=== PATIENT | female | born 1965 | race Caucasian/White ===

== ENCOUNTER 2018-12-09 12:27 | Emergency (ER) | payer MEDICAID, SELFPAY ==
[2018-12-09] VITALS (24 sets, daily range): BP systolic 109–134; BP diastolic 53–90; PULSE 54–66; RESP 10–18; TEMP 37.2; O2SAT 98–100
--- NOTE | 2018-12-09 13:04 | W.ED.GENAD ---
Discharge Plan Disposition Patient Disposition: HOME Condition: Improving Discharge Details Chief Complaint: Dizzy/Sync Clinical Impression: Vertigo Primary Care Provider: Kendal Bartlett ED Provider: Javier Meza Home Meds and New Rx's Prescriptions: New meclizine 25 mg tablet 25 mg PO TID PRN (Reason: motion sickness) Qty: 10 RF: 0 ondansetron 4 mg tablet,disintegrating 4 mg PO TID PRN (Reason: nausea) Qty: 7 RF: 0 Continued sertraline 100 mg Tablet 150 mg PO DAILY RF: 0 Discharge Instructions Instructions: Vertigo (ED) Additional Instructions: Return immediately to the emergency department for any new or worsening symptoms including chest pain, guilty breathing, loss of consciousness, or neurological deficits. Otherwise stay well-hydrated and take medication as needed and follow-up with your primary care provider for reassessment if symptoms continue. Referrals: Kendal Bartlett [Primary Care Provider] - (As needed for reassessment) Discharge Data Discharge Date/Time-TO BE ENTERED AT DEPARTURE: 12/09/18 15:20 Medical Decision Making <Javier Meza NP - Last Filed: 12/09/18 18:54> Patient presenting to the emergency department for chief complaint of near syncope, nausea, and feeling off. She reports that she was driving going up a hill when she felt her ear started to form some pressure and then her symptoms began. Patient does state over the past week she has felt a fullness in her ears and does have a history of vertigo. Patient denies any specific panic attack or anxiety but does appear anxious she states she is worried about something being wrong and affecting her family. Patient denies any chest pain, palpitations, loss of consciousness, fever chills headache or focal neurological deficits. Patient was able to drive herself to the emergency department after symptoms began. Physical exam shows a reassuring hints exam, normal neurological exam and no nystagmus noted, nondiagnostic [place]-Hallpike, normal cardiac and respiratory examination. Given patient's description of previous history of vertigo along with ear symptoms recently I feel that patient's presentation is highly suspicious of that but still plan on doing labs for rule out of electrolyte abnormalities, finger blood glucose was checked and was nondiagnostic at 137, and patient to receive a liter of fluids, meclizine and Zofran. EKG was performed by nursing staff and reviewed with attending physician and see note below for interpretation. Review of labs show nondiagnostic CMP with slightly low magnesium, which patient given oral magnesium while in the emergency department, slight anemia on CBC but nothing emergent, and urinalysis nondiagnostic. Patient reassessed and stated significant improvement of symptoms and that she is now asymptomatic and is able to ambulate with no new or worsening of her symptoms. Patient's history and feeling off with the inner ear I do feel that vertiginous symptoms are high likelihood. I doubt cardiac event, and doubt any neurological event given resolution of symptoms. patient is now asymptomatic. After discussion of diagnosis and plan of care patient has no further needs, questions, or concerns and states clear understanding to return to the emergency department for any worsening symptoms. <Ruddy Garcia MD - Last Filed: 12/09/18 13:53> ECG Data Attestation: I personally reviewed and interpreted this ECG (s) as follows: Prior ECG tracings: not available for review Interpretation: sinus rhythm ,rate of 60, pr 158, no acute st t wave ischemic findings HPI <Javire Meza NP - Last Filed: 12/09/18 18:54> General Mode of arrival: ambulatory. Date/Time Provider Initiated Documentation: 12/09/18 12:38. Limitations to Documentation: no limitations. Information obtained by: patient and RN notes reviewed. History of Present Illness 53 year old F presents to the emergency department with the chief complaint of Equilibrium off, near syncope, described as similar to prior episodes, Quality is described as other (Denies pain or discomfort), Patient started experiencing this hour(s) (1) and it has been constant. No relieving factors improve symptom(s), Patient did receive the following treatments prior to arrival, none Related Data Home Medications Medication Instructions Recorded Confirmed meclizine 25 mg PO TID PRN #10 tab 12/09/18 ondansetron 4 mg PO TID PRN #7 tab 12/09/18 sertraline 150 mg PO DAILY 12/09/18 12/09/18 Previous Rx's Medication Instructions Recorded meclizine 25 mg PO TID PRN #10 tab 12/09/18 ondansetron 4 mg PO TID PRN #7 tab 12/09/18 Allergies Allergy/AdvReac Type Severity Reaction Status Date / Time No Known Allergies Allergy Unverified 12/09/18 14:24 General Stated Complaint: Dizzy/Sync LAURY: 3 Review of Systems <Javier Meza NP - Last Filed: 12/09/18 18:54> Constitutional Denies chills, Denies fever(s), Denies headache(s) and Denies malaise ENT Reports vertigo, Reports dizziness and Denies headache(s) Cardiovascular Denies chest pain, Denies chest pain with activity, Reports diaphoresis, Denies syncope, Denies irregular heart rhythm, Reports lightheadedness, Denies palpitations and Denies dyspnea Respiratory Denies cough, Denies hemoptysis and Denies dyspnea Gastrointestinal Denies abdominal pain, Reports nausea and Denies vomiting Neurologic Reports as per HPI, Reports vertigo, Reports dizziness, Denies syncope, Denies headache(s), Denies lack of coordination, Denies focal weakness and Denies sensory deficit Psychiatric Denies anxiety Endocrine Denies palpitations PFSH <Javier Meza NP - Last Filed: 12/09/18 18:54> Social History Smoking/Tobacco Use Status: Never Drug use: Never Substance use type: does not use Do you feel safe at home: Yes Do you feel safe in your relationship?: Yes Exam <Javier Meza NP - Last Filed: 12/09/18 18:54> Const General: cooperative, healthy appearing, comfortable, no acute distress, not diaphoretic and not ill appearing Nutritional Appearance: average body habitus Orientation: alert, awake and oriented x3 Limitations: mental status not altered Eyes General: appearance normal, both eyes and all related structures Visual Wheeler: normal visual wheeler by confrontation Alignment and Position: alignment normal Periorbital: periorbital findings normal Conjunctivae: conjunctivae normal Sclera: sclerae normal Pupils: PERRL EOM: EOM intact bilaterally and No nystagmus Neck Neck: normal visual inspection, full ROM, no meningeal signs, trachea midline and supple Chest Chest: normal inspection of the chest Resp Effort & Inspection: normal respiratory effort and able to speak in complete sentences Auscultation: clear to auscultation bilaterally Cardio Jugular venous pressure: no JVD Palpation: normal PMI Rate: regular rate Rhythm: regular rhythm Heart Sounds: S1 normal, S2 normal, no click, no gallops, no murmurs and no rubs Bruits: no abdominal aortic bruits and no carotid bruits Pulses: radial pulses present bilaterally 2+ GI Inspection: normal to inspection Palpation: soft, no aortic enlargement, no pulsatile masses and nontender Auscultation: normal bowel sounds Skin General skin exam: no rashes or lesions noted Neuro General: alert, awake, oriented x3, gait normal, tone normal, moves all extremities, normal light touch, pain and propioception, no meningeal signs, no focal motor deficits, CN's II-XI intact bilaterally, not confused, not obtunded and other (neg HINTS) Cranial Nerves: no nystagmus Coordination: [id number] test normal and Romberg test normal Course <Javier Meza, RESEARCH CONSULTANT - Last Filed: 12/09/18 18:54> Vital Signs Temperature 37.2 C 12/09/18 12:29 Pulse 66 12/09/18 12:29 Respiratory Rate 12 12/09/18 12:29 Blood Pressure 134/87 12/09/18 12:29 Pulse Oximetry 99 12/09/18 12:29 Temperature 37.2 C 12/09/18 12:29 Temperature Source Skin 12/09/18 12:29 Pulse 66 12/09/18 12:29 Respiratory Rate 12 12/09/18 12:43 Respiratory Effort 12/09/18 12:43 Respiratory Depth Normal 12/09/18 12:43 Respiratory Pattern Normal 12/09/18 12:43 Blood Pressure 134/87 12/09/18 12:29 Blood Pressure Position Supine 12/09/18 12:29 Pulse Oximetry 99 12/09/18 12:29 Oxygen Delivery Method Room Air 12/09/18 12:29 Oxygen Flow Rate 0 12/09/18 12:29 Pain Level 0 12/09/18 12:29
--- NOTE | 2018-12-09 13:07 | ED.GENADUL_ITS ---
Discharge Plan Disposition Patient Disposition: HOME Condition: Improving Discharge Details Chief Complaint: Dizzy/Sync Clinical Impression: Vertigo Primary Care Provider: Kendal Bartlett ED Provider: Javier Meza Home Meds and New Rx's Prescriptions: New meclizine 25 mg tablet 25 mg PO TID PRN (Reason: motion sickness) Qty: 10 RF: 0 ondansetron 4 mg tablet,disintegrating 4 mg PO TID PRN (Reason: nausea) Qty: 7 RF: 0 Continued sertraline 100 mg Tablet 150 mg PO DAILY RF: 0 Discharge Instructions Instructions: Vertigo (ED) Additional Instructions: Return immediately to the emergency department for any new or worsening symptoms including chest pain, guilty breathing, loss of consciousness, or neurological deficits. Otherwise stay well-hydrated and take medication as needed and follow-up with your primary care provider for reassessment if symptoms continue. Referrals: Kendal Bartlett [Primary Care Provider] - (As needed for reassessment) Discharge Data Discharge Date/Time-TO BE ENTERED AT DEPARTURE: 12/09/18 15:20 Medical Decision Making <Javier Meza NP - Last Filed: 12/09/18 18:54> Patient presenting to the emergency department for chief complaint of near syncope, nausea, and feeling off. She reports that she was driving going up a hill when she felt her ear started to form some pressure and then her symptoms began. Patient does state over the past week she has felt a fullness in her ears and does have a history of vertigo. Patient denies any specific panic attack or anxiety but does appear anxious she states she is worried about something being wrong and affecting her family. Patient denies any chest pain, palpitations, loss of consciousness, fever chills headache or focal neurological deficits. Patient was able to drive herself to the emergency department after symptoms began. Physical exam shows a reassuring hints exam, normal neurological exam and no nystagmus noted, nondiagnostic [place]-Hallpike, normal cardiac and respiratory examination. Given patient's description of previous history of vertigo along with ear symptoms recently I feel that patient's presentation is highly suspicious of that but still plan on doing labs for rule out of electrolyte abnormalities, finger blood glucose was checked and was nondiagnostic at 137, and patient to receive a liter of fluids, meclizine and Zofran. EKG was performed by nursing staff and reviewed with attending physician and see note below for interpretation. Review of labs show nondiagnostic CMP with slightly low magnesium, which patient given oral magnesium while in the emergency department, slight anemia on CBC but nothing emergent, and urinalysis nondiagnostic. Patient reassessed and stated significant improvement of symptoms and that she is now asymptomatic and is able to ambulate with no new or worsening of her symptoms. Patient's history and feeling off with the inner ear I do feel that vertiginous symptoms are high likelihood. I doubt cardiac event, and doubt any neurological event given resolution of symptoms. patient is now asymptomatic. After discussion of diagnosis and plan of care patient has no further needs, questions, or concerns and states clear understanding to return to the emergency department for any worsening symptoms. <Ruddy Garcia MD - Last Filed: 12/09/18 13:53> ECG Data Attestation: I personally reviewed and interpreted this ECG (s) as follows: Prior ECG tracings: not available for review Interpretation: sinus rhythm ,rate of 60, pr 158, no acute st t wave ischemic findings HPI <Javier Meza NP - Last Filed: 12/09/18 18:54> General Mode of arrival: ambulatory . Date/Time Provider Initiated Documentation: 12/09/18 12:38 . Limitations to Documentation: no limitations . Information obtained by: patient and RN notes reviewed . History of Present Illness 53 year old F presents to the emergency department with the chief complaint of Equilibrium off, near syncope, described as similar to prior episodes, Quality is described as other (Denies pain or discomfort), Patient started experiencing this hour(s) (1) and it has been constant. No relieving factors improve symptom(s), Patient did receive the following treatments prior to arrival, none Related Data Home Medications Medication Instructions Recorded Confirmed meclizine 25 mg PO TID PRN #10 tab 12/09/18 ondansetron 4 mg PO TID PRN #7 tab 12/09/18 sertraline 150 mg PO DAILY 12/09/18 12/09/18 Previous Rx's Medication Instructions Recorded meclizine 25 mg PO TID PRN #10 tab 12/09/18 ondansetron 4 mg PO TID PRN #7 tab 12/09/18 Allergies Allergy/AdvReac Type Severity Reaction Status Date / Time No Known Allergies Allergy Unverified 12/09/18 14:24 General Stated Complaint: Dizzy/Sync LAURY: 3 Review of Systems <Javier Meza NP - Last Filed: 12/09/18 18:54> Constitutional Denies chills, Denies fever(s), Denies headache(s) and Denies malaise ENT Reports vertigo, Reports dizziness and Denies headache(s) Cardiovascular Denies chest pain, Denies chest pain with activity, Reports diaphoresis, Denies syncope, Denies irregular heart rhythm, Reports lightheadedness, Denies palpitations and Denies dyspnea Respiratory Denies cough, Denies hemoptysis and Denies dyspnea Gastrointestinal Denies abdominal pain, Reports nausea and Denies vomiting Neurologic Reports as per HPI, Reports vertigo, Reports dizziness, Denies syncope, Denies headache(s), Denies lack of coordination, Denies focal weakness and Denies sensory deficit Psychiatric Denies anxiety Endocrine Denies palpitations PFSH <Javier Meza NP - Last Filed: 12/09/18 18:54> Social History Smoking/Tobacco Use Status: Never Drug use: Never Substance use type: does not use Do you feel safe at home: Yes Do you feel safe in your relationship?: Yes Exam <Javier Meza NP - Last Filed: 12/09/18 18:54> Const General: cooperative, healthy appearing, comfortable, no acute distress, not diaphoretic and not ill appearing Nutritional Appearance: average body habitus Orientation: alert, awake and oriented x3 Limitations: mental status not altered Eyes General: appearance normal, both eyes and all related structures Visual Wheeler: normal visual wheeler by confrontation Alignment and Position: alignment normal Periorbital: periorbital findings normal Conjunctivae: conjunctivae normal Sclera: sclerae normal Pupils: PERRL EOM: EOM intact bilaterally and No nystagmus Neck Neck: normal visual inspection, full ROM, no meningeal signs, trachea midline and supple Chest Chest: normal inspection of the chest Resp Effort & Inspection: normal respiratory effort and able to speak in complete sentences Auscultation: clear to auscultation bilaterally Cardio Jugular venous pressure: no JVD Palpation: normal PMI Rate: regular rate Rhythm: regular rhythm Heart Sounds: S1 normal, S2 normal, no click, no gallops, no murmurs and no rubs Bruits: no abdominal aortic bruits and no carotid bruits Pulses: radial pulses present bilaterally 2+ GI Inspection: normal to inspection Palpation: soft, no aortic enlargement, no pulsatile masses and nontender Auscultation: normal bowel sounds Skin General skin exam: no rashes or lesions noted Neuro General: alert, awake, oriented x3, gait normal, tone normal, moves all extremities, normal light touch, pain and propioception, no meningeal signs, no focal motor deficits, CN's II-XI intact bilaterally, not confused, not obtunded and other (neg HINTS) Cranial Nerves: no nystagmus Coordination: [id number] test normal and Romberg test normal Course <Javier Meza, RADIO MAINTAINER - Last Filed: 12/09/18 18:54> Vital Signs Temperature 37.2 C 12/09/18 12:29 Pulse 66 12/09/18 12:29 Respiratory Rate 12 12/09/18 12:29 Blood Pressure 134/87 12/09/18 12:29 Pulse Oximetry 99 12/09/18 12:29 Temperature 37.2 C 12/09/18 12:29 Temperature Source Skin 12/09/18 12:29 Pulse 66 12/09/18 12:29 Respiratory Rate 12 12/09/18 12:43 Respiratory Effort 12/09/18 12:43 Respiratory Depth Normal 12/09/18 12:43 Respiratory Pattern Normal 12/09/18 12:43 Blood Pressure 134/87 12/09/18 12:29 Blood Pressure Position Supine 12/09/18 12:29 Pulse Oximetry 99 12/09/18 12:29 Oxygen Delivery Method Room Air 12/09/18 12:29 Oxygen Flow Rate 0 12/09/18 12:29 Pain Level 0 12/09/18 12:29
[2018-12-09] MEDS: Normal Saline Flush 10 ML SYR IVP (13:10)
[2018-12-09] MEDS: Normal Saline 1,000 ML 1000 ML IV (13:16)
[2018-12-09] MEDS: Meclizine 25 MG TAB PO (13:17)
[2018-12-09] MEDS: Ondansetron O.D.T. 4 MG TABEF PO (13:18)
[2018-12-09 13:29] LABS: Abs Immature Grans 0.02 k/cumm (0.0-0.09); Absolute Basophil Count 0.01 k/cumm (0.0-0.2); Absolute Eosinophil Count 0.21 k/cumm (0.0-0.7); Absolute Monocyte Count 0.73 k/cumm (0.11-0.7); Absolute Neutrophil Count 4.07 k/cumm (1.2-6.7); Basophils % 0.1; Eosinophils % 3.1; HCT 35.2 % (36.0-46.0); HGB 11.3 g/dL (12.0-15.5); Immature Grans % 0.3; Lymphocytes % 25.2; Mean Corp. HGB Concentration 32.1 g/dL (32.0-36.0); Mean Corpuscular Hemoglobin 19.4 pg (27.0-33.0); Mean Corpuscular Volume 60.6 fL (80-95); Monocytes % 10.8; Neutrophils % 60.5; RBC 5.81 m/cumm (4.00-5.20); RBC Distribution Width 16.3 % (11.7-14.6); White Blood Cell Count 6.74 k/cumm (4.4-10.8)
[2018-12-09 13:42] LABS: ALT 29 U/L (12-78); AST 27 U/L (15-37); Albumin 3.8 g/dL (3.4-5.0); Alkaline Phosphatase 77 U/L (46-116); Anion Gap 10.3 mmol/L (3-11); BUN 19 mg/dL (7-18); Bilirubin, Total 0.4 mg/dL (0.2-1.0); CO2 23.7 mmol/L (21.0-32.0); Chloride 104 mmol/L (98-107); Glucose 116 mg/dL (70-100); Magnesium 1.7 mg/dL (1.8-2.4); Potassium 3.8 mmol/L (3.5-5.1); Sodium 138 mmol/L (136-145)
[2018-12-09 13:48] LABS: Troponin I < 0.02 ng/mL (0.00-0.06)
[2018-12-09] MEDS: Magnesium Oxide 400 MG TAB PO (13:53)
[2018-12-09 13:56] LABS: Diff Comment RBC Morph Reviewed; Platelet Count 176 x1000/uL (130-400)
[2018-12-09 13:58] LABS: Anisocytosis 1+
[2018-12-09 13:59] LABS: Hypochromasia 1+; Microcytosis 2+
[2018-12-09 14:01] LABS: Poikilocytes 2+
[2018-12-09 14:26] LABS: Bilirubin Negative (Negative); Blood Trace-intact (Negative); Clarity Clear; Glucose Negative (Negative); Ketones Trace mg/dL (Negative); Leukocyte Esterase Negative (Negative); Nitrite Negative (Negative); Urobilinogen 0.2 EU/dL (Up TO 0.2); pH 6.5 (5-8)
[2018-12-09 14:49] LABS: Bacteria Rare HPF (Negative); C & S Indicated? No; Casts Negative LPF (Negative); Crystals Negative HPF (Negative); Epithelial Cells Rare HPF (Negative); Mucus Negative (Negative); WBC 0-2 HPF (0-5)
== END 2018-12-09 15:20 | disposition home or self-care (01) ==
PROVIDERS: Emergency Provider Nurse Practitioner Family; PCP Nurse Practitioner Family
DX: R42 Dizziness and giddiness (principal)
CPT/HCPCS: 36415; 36416; 80053; 82962; 93005; 96360; 99284; 81003; 81015; 83735; 84484; 85025; 93010

== ENCOUNTER 2019-07-27 09:43 | Outpatient (REF) | payer MEDICAID, SELFPAY ==
--- NOTE | 2019-07-27 09:00 | PAPFT_PTH ---
PATIENT: Silke Garces LOC: [facility] U#:[id number] AGE/SX: 54/F ROOM: RE07/27/[address]: Kendal Bartlett : 1965 BED: DIS: 07/27/2019 SPEC #: [id number] RECD: 07/27/19 13:13 STATUS: [place] REQ #: [id number] [place]: 07/27/19 09:[address]: Kendal Bartlett DEPT: [facility] Cytology RECD BY: Katia Castillo Tissues: 1 - CX/ENDOCX FOR PAP SMEARS Procedures: PAP THIN PREP/UVM Screening Comments: [id number]
== END 2019-07-27 10:03 ==
LOC: NCHCN 09:43
PROVIDERS: PCP Nurse Practitioner Family; Visit Provider Nurse Practitioner Family
DX: Z11.51 Encounter for screening for human papillomavirus (HPV) (principal); Z12.4 Encounter for screening for malignant neoplasm of cervix; Z00.00 Encounter for general adult medical examination without abnormal findings
CPT/HCPCS: 88142; 87624

== ENCOUNTER 2019-11-02 07:22 | Day surgery (SDC) | payer MEDICAID, SELFPAY ==
[2019-11-02 07:42] VITALS: BP 142/78; PULSE 74; RESP 20; TEMP 36.5; O2SAT 99
[2019-11-02] MEDS: Lactated Ringers 1,000 ML 80 ML IV (08:06)
--- NOTE | 2019-11-02 09:47 | W.PM.DSUDISC ---
Discharge Plan Disposition Patient Disposition: HOME Condition: Good Discharge Details Reason For Visit: CRC screen Attending Provider: Vivian Laureano Primary Care Provider: Kendal Bartlett Home Meds and New Rx's Prescriptions: Continued zolpidem [Ambien] 5 mg tablet 5 mg PO QHS PRNRF: 0 sertraline 100 mg tablet 100 mg PO DAILY RF: 0 Discontinued polyethylene glycol 3350 17 gram/dose powder 238 g PO ONCE Qty: 238 RF: 0 bisacodyl [Dulcolax (bisacodyl)] 5 mg tablet,delayed release (DR/EC) 5 mg PO ONCE Qty: 4 RF: 0 Discharge Instructions Additional Instructions: Findings:normal Follow up: repeat in 10 yrs time Please call if you develop: fevers >101.5 Nausea or Vomiting Abdominal pain that is not transient DAY SURGERY UNIT POST COLONOSCOPY INSTRUCTIONS 1. Because there will be medication in your system for the next 24 hours, you may feel a little sleepy. Your coordination will be affected. Therefore: a. Do not drive or operate dangerous equipment for 24 hours. b. Do not drink alcohol beverages for 24 hours (not even beer). c. Plan to go home and rest for the day. 2. Generally there are no restrictions on your activity after a day or so has gone by, but you may feel a bit fatigued for a few days. 3 After you arrive home you may have a light meal and return to a normal diet as you can tolerate it without feeling sick to your stomach. 4. After surgery, you may feel pain or discomfort. This should be only transient, but if it persists please contact your doctor. 5. If there are any questions regarding the findings of your procedure, please feel free to contact your doctor. 6. If you are unable to contact your doctor with a problem, contact the hospital at [phone]. 7. Continue all your regular medications unless directed otherwise. I understand the above instructions and have no questions. Signature of Patient or Responsible Adult Escort Date/Time Name of Responsible Adult Escort Signature of Nurse Date/Time Activity:: no lifting over 20#'s/strenuous acitivty x 24 hrs Diet:: small lt meals x 24 hrs Discharge Orders Discharge Orders: Discharge Order (Routine); Ordered 11/02/19 Ordered By: Vivian Laureano DS: Diagnosis Discharge Diagnosis (1) Colon cancer screening: Status: Acute
--- NOTE | 2019-11-02 09:54 | W.COLOREPORT ---
Date of service: 11/02/19 Time of Service: 09:54 Colonoscopy Report Date of procedure: 11/02/19 Pre-op diagnosis general: screen Post-op diagnosis procedure note: other Anesthesia proc note operative: GETA Disposition: same day Prep: Miralax/Dulcolax Procedure Description: After informed consent was obtained the patient was taken to the procedure room and placed in a left decubitous position. Monitors were applied and a time out was done. The patients name, date of , procedure, allergies to medications and metal in their body was reviewed. The patient was then sedated. Once sedated and comfortable a rectal exam was done. External exam was normal. Internal exam revealed a normal sphincter tone and no palpable masses. The scope was then introduced and retrofelexed. No internal hemorrhoids were identified. The scope was then advanced to the cecum w/out difficulty. The TI and appendiceal orifice were identified. The prep was good. The scope was then slowly retracted over 10 mins minutes back into the rectum. No polyps/AVM's/diverticular Dx. The scope was removed and the patient was woken up and taken back to Same day surgery in stable condition. The patient tolerated the procedure well and there were no immediate complications. Follow up: The patient should follow up in 10 years unless they develop changes in bowel habits or other new gastrointestinal complaints.
[2019-11-02 10:15] VITALS: BP 120/67; PULSE 62; RESP 16; TEMP 36.4; O2SAT 100
== END 2019-11-02 11:20 | disposition home or self-care (01) ==
PROVIDERS: PCP Nurse Practitioner Family; Visit Provider Surgery
PROC: 0DJD8ZZ Inspection of Lower Intestinal Tract, Via Natural or Artificial Opening Endoscopic (ICD-10-PCS; CPT 45378; principal; 2019-11-02 08:15)
DX: Z12.11 Encounter for screening for malignant neoplasm of colon (principal)
CPT/HCPCS: 45378; J2001

== ENCOUNTER 2019-12-18 11:07 | Outpatient (RCR) | payer MEDICAID, SELFPAY | END 2019-12-21 23:59 | disposition home or self-care (01) | LOC: INF 11:07 | PROVIDERS: PCP Nurse Practitioner Family; Visit Provider Internal Medicine Hematology & Oncology | DX: C53.8 Malignant neoplasm of overlapping sites of cervix uteri (principal) | CPT/HCPCS: 36415; 82565 ==

== ENCOUNTER 2020-01-16 01:19 | Outpatient (RCR) | payer MEDICAID, SELFPAY ==
[2020-01-02 11:19] LABS: ALT 29 U/L (14-59); AST 18 U/L (15-37); Albumin 4.1 g/dL (3.4-5.0); Alkaline Phosphatase 77 U/L (46-116); BUN 17 mg/dL (7-18); Bilirubin, Total 0.6 mg/dL (0.2-1.0); CREATININE 0.93 mg/dL (0.55-1.02); Calcium 9.9 mg/dL (8.5-10.1); Chloride 100 mmol/L (98-107); Glucose 114 mg/dL (74-106); Potassium 3.8 mmol/L (3.5-5.1); Sodium 136 mmol/L (136-145); Total Protein 7.5 g/dL (6.4-8.2)
[2020-01-02 11:27] LABS: Abs Immature Grans 0.07 k/cumm (0.0-0.09); Absolute Basophil Count 0.01 k/cumm (0.0-0.2); Absolute Eosinophil Count 0.13 k/cumm (0.0-0.7); Absolute Lymphocyte Count 1.11 k/cumm (1.2-3.4); Absolute Monocyte Count 0.74 k/cumm (0.11-0.7); Absolute Neutrophil Count 5.97 k/cumm (1.2-6.7); Basophils % 0.1; Eosinophils % 1.6; HCT 37.9 % (36.0-46.0); HGB 12.5 g/dL (12.0-15.5); Immature Grans % 0.9 %; Lymphocytes % 13.8; Mean Corpuscular Volume 60.6 fL (80-95); Mean Platelet Volume 11.2 fL (8.0-11.0); Monocytes % 9.2; Neutrophils % 74.4; RBC 6.25 m/cumm (4.00-5.20); RBC Distribution Width 16.7 % (11.7-14.6); White Blood Cell Count 8.03 k/cumm (4.4-10.8)
[2020-01-02 11:39] LABS: Diff Comment RBC Morph Reviewed; Platelet Count 218 x1000/uL (130-400)
[2020-01-02 11:40] LABS: Anisocytosis 1+; Hypochromasia 3+; Microcytosis 3+
[2020-01-02 11:41] LABS: Poikilocytes 2+
[2020-01-02 12:36] LABS: Magnesium 1.9 mg/dL (1.8-2.4)
[2020-01-09 13:50] LABS: Abs Immature Grans 0.02 k/cumm (0.0-0.09); Absolute Basophil Count 0.01 k/cumm (0.0-0.2); Absolute Eosinophil Count 0.27 k/cumm (0.0-0.7); Absolute Lymphocyte Count 0.51 k/cumm (1.2-3.4); Absolute Monocyte Count 0.44 k/cumm (0.11-0.7); Absolute Neutrophil Count 3.44 k/cumm (1.2-6.7); Basophils % 0.2; Eosinophils % 5.8; HCT 33.3 % (36.0-46.0); HGB 10.8 g/dL (12.0-15.5); Immature Grans % 0.4 %; Lymphocytes % 10.9; Mean Corp. HGB Concentration 32.4 g/dL (32.0-36.0); Mean Corpuscular Hemoglobin 19.6 pg (27.0-33.0); Mean Corpuscular Volume 60.4 fL (80-95); Mean Platelet Volume 10.9 fL (8.0-11.0); Monocytes % 9.4; Neutrophils % 73.3; RBC 5.51 m/cumm (4.00-5.20); RBC Distribution Width 15.6 % (11.7-14.6); White Blood Cell Count 4.69 k/cumm (4.4-10.8)
[2020-01-09 13:58] LABS: ALT 25 U/L (14-59); AST 14 U/L (15-37); Albumin 3.8 g/dL (3.4-5.0); Alkaline Phosphatase 68 U/L (46-116); Anion Gap 9.6 mmol/L (3-11); BUN 16 mg/dL (7-18); Bilirubin, Total 0.3 mg/dL (0.2-1.0); CO2 25.4 mmol/L (21.0-32.0); CREATININE 0.83 mg/dL (0.55-1.02); Calcium 9.3 mg/dL (8.5-10.1); Chloride 101 mmol/L (98-107); Glucose 113 mg/dL (74-106); Potassium 3.3 mmol/L (3.5-5.1); Sodium 136 mmol/L (136-145); Total Protein 6.9 g/dL (6.4-8.2)
[2020-01-09 14:29] LABS: Anisocytosis 2+; Diff Comment RBC Morph Reviewed; Microcytosis 1+; Platelet Count 132 x1000/uL (130-400)
[2020-01-09 14:30] LABS: Poikilocytes 1+
[2020-01-10 11:39] LABS: Magnesium 1.8 mg/dL (1.8-2.4)
[2020-01-16 09:35] LABS: Abs Immature Grans 0.05 k/cumm (0.0-0.09); Absolute Basophil Count 0.02 k/cumm (0.0-0.2); Absolute Eosinophil Count 0.56 k/cumm (0.0-0.7); Absolute Lymphocyte Count 0.51 k/cumm (1.2-3.4); Absolute Monocyte Count 0.39 k/cumm (0.11-0.7); Basophils % 0.5; Eosinophils % 14.6; HCT 31.1 % (36.0-46.0); Immature Grans % 1.3 %; Lymphocytes % 13.3; Mean Corp. HGB Concentration 32.2 g/dL (32.0-36.0); Mean Corpuscular Hemoglobin 19.7 pg (27.0-33.0); Mean Corpuscular Volume 61.3 fL (80-95); Monocytes % 10.2; Neutrophils % 60.1; RBC 5.07 m/cumm (4.00-5.20); White Blood Cell Count 3.83 k/cumm (4.4-10.8)
[2020-01-16 09:36] LABS: Anisocytosis 1+; Diff Comment PLT Morph Reviewed; Hypochromasia 2+; Platelet Count 118 x1000/uL (130-400)
[2020-01-16 09:37] LABS: Microcytosis 3+; Poikilocytes 2+
[2020-01-16 09:41] LABS: ALT 32 U/L (14-59); AST 16 U/L (15-37); Albumin 3.6 g/dL (3.4-5.0); Alkaline Phosphatase 57 U/L (46-116); Anion Gap 5.3 mmol/L (3-11); BUN 12 mg/dL (7-18); Bilirubin, Total 0.3 mg/dL (0.2-1.0); CO2 28.7 mmol/L (21.0-32.0); CREATININE 0.78 mg/dL (0.55-1.02); Chloride 101 mmol/L (98-107); Glucose 100 mg/dL (74-106); Magnesium 1.6 mg/dL (1.8-2.4); Potassium 3.4 mmol/L (3.5-5.1); Sodium 135 mmol/L (136-145); Total Protein 6.6 g/dL (6.4-8.2)
== END 2020-01-16 14:57 ==
LOC: INF 01:19
PROVIDERS: PCP Nurse Practitioner Family; Visit Provider Internal Medicine
DX: C53.1 Malignant neoplasm of exocervix (principal)
CPT/HCPCS: 36415; 80053; 83735; 85025

== ENCOUNTER 2020-01-16 14:51 | Outpatient (RCR) | payer MEDICAID, SELFPAY ==
[2019-12-26 15:18] LABS: Abs Immature Grans 0.02 k/cumm (0.0-0.09); Absolute Basophil Count 0.02 k/cumm (0.0-0.2); Absolute Eosinophil Count 0.43 k/cumm (0.0-0.7); Absolute Monocyte Count 0.53 k/cumm (0.11-0.7); Absolute Neutrophil Count 4.98 k/cumm (1.2-6.7); Basophils % 0.2; Eosinophils % 5.1; HCT 35.8 % (36.0-46.0); HGB 11.4 g/dL (12.0-15.5); Immature Grans % 0.2 %; Lymphocytes % 29.5; Mean Corp. HGB Concentration 31.8 g/dL (32.0-36.0); Mean Corpuscular Hemoglobin 19.5 pg (27.0-33.0); Mean Corpuscular Volume 61.2 fL (80-95); Mean Platelet Volume 10.9 fL (8.0-11.0); Monocytes % 6.3; Neutrophils % 58.7; Platelet Count 211 x1000/uL (130-400); RBC 5.85 m/cumm (4.00-5.20); RBC Distribution Width 16.7 % (11.7-14.6); White Blood Cell Count 8.48 k/cumm (4.4-10.8)
[2019-12-26 15:26] LABS: ALT 28 U/L (14-59); AST 21 U/L (15-37); Albumin 3.9 g/dL (3.4-5.0); Alkaline Phosphatase 86 U/L (46-116); Anion Gap 9.7 mmol/L (3-11); BUN 17 mg/dL (7-18); Bilirubin, Total 0.5 mg/dL (0.2-1.0); CO2 27.3 mmol/L (21.0-32.0); CREATININE 0.95 mg/dL (0.55-1.02); Calcium 9.3 mg/dL (8.5-10.1); Chloride 103 mmol/L (98-107); Glucose 93 mg/dL (74-106); Potassium 3.4 mmol/L (3.5-5.1); Sodium 140 mmol/L (136-145); Total Protein 7.2 g/dL (6.4-8.2)
[2019-12-26 15:47] LABS: Diff Comment Diff Reviewed; Microcytosis 3+
[2019-12-26 15:48] LABS: Anisocytosis 1+; Poikilocytes 1+
[2019-12-26 17:44] LABS: Magnesium 1.9 mg/dL (1.8-2.4)
== END 2020-01-21 23:59 | disposition home or self-care (01) ==
LOC: INF 14:51
PROVIDERS: Internal Medicine; PCP Nurse Practitioner Family; Visit Provider Internal Medicine Hematology & Oncology
DX: C53.1 Malignant neoplasm of exocervix (principal)
CPT/HCPCS: 36415; 80053; 83735; 85025

== ENCOUNTER 2020-02-06 00:36 | Outpatient (RCR) | payer MEDICAID, SELFPAY ==
[2020-01-23 09:49] LABS: Abs Immature Grans 0.02 k/cumm (0.0-0.09); Absolute Basophil Count 0.01 k/cumm (0.0-0.2); Absolute Eosinophil Count 0.09 k/cumm (0.0-0.7); Absolute Lymphocyte Count 0.57 k/cumm (1.2-3.4); Absolute Monocyte Count 0.45 k/cumm (0.11-0.7); Absolute Neutrophil Count 2.98 k/cumm (1.2-6.7); Basophils % 0.2; Eosinophils % 2.2; HCT 31.6 % (36.0-46.0); HGB 10.2 g/dL (12.0-15.5); Immature Grans % 0.5 %; Lymphocytes % 13.8; Mean Corp. HGB Concentration 32.3 g/dL (32.0-36.0); Mean Corpuscular Hemoglobin 19.8 pg (27.0-33.0); Mean Corpuscular Volume 61.5 fL (80-95); Mean Platelet Volume 10.3 fL (8.0-11.0); Monocytes % 10.9; Neutrophils % 72.4; RBC 5.14 m/cumm (4.00-5.20); RBC Distribution Width 16.8 % (11.7-14.6); White Blood Cell Count 4.12 k/cumm (4.4-10.8)
[2020-01-23 09:51] LABS: ALT 30 U/L (14-59); AST 14 U/L (15-37); Albumin 3.7 g/dL (3.4-5.0); Alkaline Phosphatase 59 U/L (46-116); Anion Gap 3.5 mmol/L (3-11); BUN 15 mg/dL (7-18); Bilirubin, Total 0.4 mg/dL (0.2-1.0); CO2 28.5 mmol/L (21.0-32.0); Calcium 8.8 mg/dL (8.5-10.1); Chloride 99 mmol/L (98-107); Glucose 101 mg/dL (74-106); Magnesium 1.4 mg/dL (1.8-2.4); Potassium 3.3 mmol/L (3.5-5.1); Sodium 131 mmol/L (136-145); Total Protein 6.7 g/dL (6.4-8.2)
[2020-01-23 10:10] LABS: Anisocytosis 2+; Diff Comment Diff Reviewed; Platelet Count 113 x1000/uL (130-400)
[2020-01-23 10:11] LABS: Hypochromasia 2+; Microcytosis 3+; Ovalocytes 2+
[2020-01-23 10:13] LABS: Poikilocytes 2+
[2020-01-30 09:38] LABS: Abs Immature Grans 0.01 k/cumm (0.0-0.09); Absolute Eosinophil Count 0.07 k/cumm (0.0-0.7); Absolute Lymphocyte Count 0.44 k/cumm (1.2-3.4); Absolute Monocyte Count 0.29 k/cumm (0.11-0.7); Absolute Neutrophil Count 1.97 k/cumm (1.2-6.7); Eosinophils % 2.5; HCT 31.5 % (36.0-46.0); HGB 10.2 g/dL (12.0-15.5); Immature Grans % 0.4 %; Lymphocytes % 15.8; Mean Corp. HGB Concentration 32.4 g/dL (32.0-36.0); Mean Corpuscular Hemoglobin 20.1 pg (27.0-33.0); Mean Platelet Volume 9.1 fL (8.0-11.0); Monocytes % 10.4; Neutrophils % 70.9; RBC 5.08 m/cumm (4.00-5.20); RBC Distribution Width 17.9 % (11.7-14.6); White Blood Cell Count 2.78 k/cumm (4.4-10.8)
[2020-01-30 09:50] LABS: ALT 29 U/L (14-59); AST 16 U/L (15-37); Albumin 3.7 g/dL (3.4-5.0); Alkaline Phosphatase 59 U/L (46-116); BUN 15 mg/dL (7-18); Bilirubin, Total 0.4 mg/dL (0.2-1.0); CREATININE 0.83 mg/dL (0.55-1.02); Calcium 8.8 mg/dL (8.5-10.1); Chloride 100 mmol/L (98-107); Glucose 102 mg/dL (74-106); Potassium 3.4 mmol/L (3.5-5.1); Sodium 137 mmol/L (136-145); Total Protein 6.6 g/dL (6.4-8.2)
[2020-01-30 10:14] LABS: Anisocytosis 2+; Basophilic Stippling Present; Diff Comment RBC Morph Reviewed; Platelet Count 120 x1000/uL (130-400)
[2020-01-30 10:15] LABS: Hypochromasia 2+; Microcytosis 3+
[2020-01-30 10:16] LABS: Poikilocytes 2+
[2020-01-30 17:21] LABS: Magnesium 1.8 mg/dL (1.8-2.4)
[2020-02-06 12:26] LABS: Abs Immature Grans 0.01 k/cumm (0.0-0.09); Absolute Eosinophil Count 0.05 k/cumm (0.0-0.7); Absolute Lymphocyte Count 0.41 k/cumm (1.2-3.4); Absolute Monocyte Count 0.27 k/cumm (0.11-0.7); Eosinophils % 2.2; HCT 27.8 % (36.0-46.0); Immature Grans % 0.4 %; Lymphocytes % 18.3; Mean Corp. HGB Concentration 32.4 g/dL (32.0-36.0); Mean Corpuscular Hemoglobin 20.4 pg (27.0-33.0); Mean Corpuscular Volume 62.9 fL (80-95); Monocytes % 12.1; RBC 4.42 m/cumm (4.00-5.20); White Blood Cell Count 2.24 k/cumm (4.4-10.8)
[2020-02-06 12:37] LABS: ALT 28 U/L (14-59); AST 14 U/L (15-37); Albumin 3.6 g/dL (3.4-5.0); Alkaline Phosphatase 58 U/L (46-116); BUN 16 mg/dL (7-18); Bilirubin, Total 0.2 mg/dL (0.2-1.0); CREATININE 0.95 mg/dL (0.55-1.02); Calcium 8.7 mg/dL (8.5-10.1); Chloride 99 mmol/L (98-107); Glucose 109 mg/dL (74-106); Potassium 3.4 mmol/L (3.5-5.1); Sodium 135 mmol/L (136-145); Total Protein 6.4 g/dL (6.4-8.2)
[2020-02-06 12:45] LABS: Anisocytosis 2+; Diff Comment RBC Morph Reviewed; Hypochromasia 3+; Microcytosis 3+; Platelet Count 157 x1000/uL (130-400); Polychromasia Present
[2020-02-06 12:46] LABS: Poikilocytes 2+
== END 2020-02-20 23:59 | disposition home or self-care (01) ==
LOC: INF 00:36
PROVIDERS: PCP Nurse Practitioner Family; Visit Provider Internal Medicine
DX: C53.1 Malignant neoplasm of exocervix (principal)
CPT/HCPCS: 36415; 80053; 83735; 85025

== ENCOUNTER 2020-03-05 03:17 | Outpatient (RCR) | payer MEDICAID, SELFPAY ==
[2020-03-05 08:56] LABS: Abs Immature Grans 0.06 k/cumm (0.0-0.09); Absolute Basophil Count 0.01 k/cumm (0.0-0.2); Absolute Eosinophil Count 0.45 k/cumm (0.0-0.7); Absolute Lymphocyte Count 0.37 k/cumm (1.2-3.4); Absolute Monocyte Count 0.66 k/cumm (0.11-0.7); Basophils % 0.2; Eosinophils % 8.1; HCT 30.7 % (36.0-46.0); HGB 9.8 g/dL (12.0-15.5); Immature Grans % 1.1 %; Lymphocytes % 6.7; Mean Corp. HGB Concentration 31.9 g/dL (32.0-36.0); Mean Corpuscular Hemoglobin 21.1 pg (27.0-33.0); Mean Corpuscular Volume 66.2 fL (80-95); Mean Platelet Volume 10.5 fL (8.0-11.0); Monocytes % 11.9; RBC 4.64 m/cumm (4.00-5.20); RBC Distribution Width 20.9 % (11.7-14.6); White Blood Cell Count 5.55 k/cumm (4.4-10.8)
[2020-03-05 09:07] LABS: ALT 22 U/L (14-59); AST 20 U/L (15-37); Albumin 3.5 g/dL (3.4-5.0); Alkaline Phosphatase 73 U/L (46-116); BUN 17 mg/dL (7-18); Bilirubin, Total 0.4 mg/dL (0.2-1.0); CREATININE 0.86 mg/dL (0.55-1.02); Calcium 9.2 mg/dL (8.5-10.1); Chloride 102 mmol/L (98-107); Glucose 112 mg/dL (74-106); Magnesium 1.8 mg/dL (1.8-2.4); Sodium 138 mmol/L (136-145); Total Protein 6.9 g/dL (6.4-8.2)
[2020-03-05 09:12] LABS: Diff Comment RBC Morph Reviewed
[2020-03-05 09:13] LABS: Platelet Count 271 x1000/uL (130-400)
[2020-03-05 09:14] LABS: Anisocytosis 2+; Hypochromasia 2+; Microcytosis 3+; Poikilocytes 2+
== END 2020-03-22 23:59 | disposition home or self-care (01) ==
LOC: INF 03:17
PROVIDERS: PCP Nurse Practitioner Family; Visit Provider Internal Medicine
DX: C53.1 Malignant neoplasm of exocervix (principal)
CPT/HCPCS: 36415; 80053; 83735; 85025

== ENCOUNTER 2020-04-18 03:54 | Outpatient (RCR) | payer MEDICAID, SELFPAY ==
[2020-03-26 08:58] LABS: Abs Immature Grans 0.05 10^3/uL (0.0-0.06); Absolute Basophil Count 0.02 10^3/uL (0.0-0.2); Absolute Eosinophil Count 0.36 10^3/uL (0.0-0.7); Absolute Lymphocyte Count 0.47 10^3/uL (1.2-3.4); Absolute Monocyte Count 0.69 10^3/uL (0.1-0.8); Absolute Neutrophil Count 3.56 10^3/uL (1.2-6.7); Basophils % 0.4; HCT 29.7 % (36.0-46.0); HGB 9.1 g/dL (11.2-15.7); Lymphocytes % 9.1; MCH 21.4 pg (27.0-33.0); MCHC 30.6 % (32.0-36.0); MCV 69.7 fL (80-95); MPV 10.8 fL (8.0-11.0); Monocytes % 13.4; Neutrophils % 69.1; RBC 4.26 10^6/uL (3.93-5.22); RDW 19.9 % (11.7-14.6); RDW-SD 49.7 fL; WBC 5.15 10^3/uL (4.4-10.8)
[2020-03-26 09:10] LABS: Anisocytosis 2+; Diff Comment RBC Morph Reviewed; Hypochromasia 2+; Microcytosis 3+
[2020-03-26 09:11] LABS: Platelet Count 175 10^3/uL (130-400)
[2020-03-26 09:12] LABS: Poikilocytes 2+
[2020-03-26 09:14] LABS: ALT 30 U/L (14-59); AST 20 U/L (15-37); Albumin 3.4 g/dL (3.4-5.0); Alkaline Phosphatase 82 U/L (46-116); Anion Gap 7.2 mmol/L (3-11); BUN 15 mg/dL (7-18); Bilirubin, Total 0.4 mg/dL (0.2-1.0); CO2 28.8 mmol/L (21.0-32.0); CREATININE 0.84 mg/dL (0.55-1.02); Calcium 9.2 mg/dL (8.5-10.1); Chloride 102 mmol/L (98-107); Glucose 94 mg/dL (74-106); Magnesium 1.8 mg/dL (1.8-2.4); Potassium 3.7 mmol/L (3.5-5.1); Sodium 138 mmol/L (136-145); Total Protein 6.7 g/dL (6.4-8.2)
[2020-04-16 09:11] LABS: Abs Immature Grans 0.01 10^3/uL (0.0-0.06); Absolute Basophil Count 0.02 10^3/uL (0.0-0.2); Absolute Lymphocyte Count 0.32 10^3/uL (1.2-3.4); Absolute Monocyte Count 0.42 10^3/uL (0.1-0.8); Absolute Neutrophil Count 1.93 10^3/uL (1.2-6.7); Basophils % 0.7; Eosinophils % 6.9; HCT 28.1 % (36.0-46.0); HGB 8.7 g/dL (11.2-15.7); Immature Grans % 0.3; MCH 22.1 pg (27.0-33.0); MCV 71.3 fL (80-95); MPV 10.6 fL (8.0-11.0); Monocytes % 14.5; Neutrophils % 66.6; Nucleated RBC 0 %; Platelet Count 152 10^3/uL (130-400); RBC 3.94 10^6/uL (3.93-5.22); RDW 17.7 % (11.7-14.6); RDW-SD 45.4 fL
[2020-04-16 09:17] LABS: Diff Comment RBC Morph Reviewed
[2020-04-16 09:19] LABS: Microcytosis 2+
[2020-04-16 09:20] LABS: Poikilocytes 1+
[2020-04-16 09:26] LABS: ALT 30 U/L (14-59); AST 18 U/L (15-37); Albumin 3.5 g/dL (3.4-5.0); Alkaline Phosphatase 90 U/L (46-116); Anion Gap 4.7 mmol/L (3-11); BUN 19 mg/dL (7-18); Bilirubin, Total 0.4 mg/dL (0.2-1.0); CO2 28.3 mmol/L (21.0-32.0); CREATININE 2.79 mg/dL (0.55-1.02); Calcium 9.1 mg/dL (8.5-10.1); Chloride 106 mmol/L (98-107); Estimated GFR 17.68 (mL/min/1.73m2); Glucose 66 mg/dL (74-106); Magnesium 1.7 mg/dL (1.8-2.4); Potassium 3.8 mmol/L (3.5-5.1); Sodium 139 mmol/L (136-145); Total Protein 6.4 g/dL (6.4-8.2)
[2020-04-18 09:47] LABS: ALT 27 U/L (14-59); AST 22 U/L (15-37); Albumin 3.7 g/dL (3.4-5.0); Alkaline Phosphatase 88 U/L (46-116); Anion Gap 10.3 mmol/L (3-11); BUN 18 mg/dL (7-18); Bilirubin, Total 0.5 mg/dL (0.2-1.0); CO2 27.7 mmol/L (21.0-32.0); Calcium 9.3 mg/dL (8.5-10.1); Chloride 101 mmol/L (98-107); Glucose 90 mg/dL (74-106); Potassium 3.9 mmol/L (3.5-5.1); Sodium 139 mmol/L (136-145); Total Protein 6.8 g/dL (6.4-8.2)
[2020-04-18 10:00] LABS: CREATININE 0.82 mg/dL (0.55-1.02)
== END 2020-04-22 23:59 | disposition home or self-care (01) ==
LOC: INF 03:54
PROVIDERS: PCP Nurse Practitioner Family; Visit Provider Internal Medicine
DX: C53.1 Malignant neoplasm of exocervix (principal)
CPT/HCPCS: 36415; 80053; 83735; 85025

== ENCOUNTER 2020-05-14 01:26 | Outpatient (RCR) | payer MEDICAID, SELFPAY ==
[2020-04-23 09:34] LABS: Abs Immature Grans 0.02 10^3/uL (0.0-0.06); Absolute Basophil Count 0.02 10^3/uL (0.0-0.2); Absolute Eosinophil Count 0.36 10^3/uL (0.0-0.7); Absolute Lymphocyte Count 0.44 10^3/uL (1.2-3.4); Absolute Monocyte Count 0.51 10^3/uL (0.1-0.8); Absolute Neutrophil Count 2.72 10^3/uL (1.2-6.7); Basophils % 0.5; Eosinophils % 8.8; HCT 30.3 % (36.0-46.0); HGB 9.3 g/dL (11.2-15.7); Immature Grans % 0.5; Lymphocytes % 10.8; MCH 21.8 pg (27.0-33.0); MCHC 30.7 % (32.0-36.0); MPV 9.7 fL (8.0-11.0); Monocytes % 12.5; Neutrophils % 66.9; Nucleated RBC 0 %; Platelet Count 244 10^3/uL (130-400); RBC 4.27 10^6/uL (3.93-5.22); RDW 16.5 % (11.7-14.6); RDW-SD 42.9 fL; WBC 4.07 10^3/uL (4.4-10.8)
[2020-04-23 09:55] LABS: Diff Comment RBC Morph Reviewed; Microcytosis 2+
[2020-04-23 09:56] LABS: Poikilocytes 1+
[2020-04-23 10:05] LABS: ALT 26 U/L (14-59); AST 21 U/L (15-37); Albumin 3.7 g/dL (3.4-5.0); Alkaline Phosphatase 94 U/L (46-116); Anion Gap 7.4 mmol/L (3-11); BUN 17 mg/dL (7-18); Bilirubin, Total 0.4 mg/dL (0.2-1.0); CO2 28.6 mmol/L (21.0-32.0); Calcium 8.9 mg/dL (8.5-10.1); Chloride 103 mmol/L (98-107); Glucose 95 mg/dL (74-106); Magnesium 1.8 mg/dL (1.8-2.4); Sodium 139 mmol/L (136-145); Total Protein 6.3 g/dL (6.4-8.2)
[2020-05-14 09:05] LABS: Abs Immature Grans 0.03 10^3/uL (0.0-0.06); Absolute Basophil Count 0.02 10^3/uL (0.0-0.2); Absolute Eosinophil Count 0.14 10^3/uL (0.0-0.7); Absolute Lymphocyte Count 0.41 10^3/uL (1.2-3.4); Absolute Monocyte Count 0.84 10^3/uL (0.1-0.8); Absolute Neutrophil Count 2.23 10^3/uL (1.2-6.7); Basophils % 0.5; Eosinophils % 3.8; HCT 30.9 % (36.0-46.0); HGB 9.6 g/dL (11.2-15.7); Immature Grans % 0.8; Lymphocytes % 11.2; MCH 22.3 pg (27.0-33.0); MCHC 31.1 % (32.0-36.0); MCV 71.7 fL (80-95); Monocytes % 22.9; Neutrophils % 60.8; Nucleated RBC 0 %; RBC 4.31 10^6/uL (3.93-5.22); RDW 15.8 % (11.7-14.6); RDW-SD 40.7 fL; WBC 3.67 10^3/uL (4.4-10.8)
[2020-05-14 09:28] LABS: Basophilic Stippling Present; Diff Comment RBC Morph Reviewed; Hypochromasia 1+; Microcytosis 3+; Platelet Count 178 10^3/uL (130-400); Polychromasia Present; Tear Drop Cells 2+
[2020-05-14 09:29] LABS: Poikilocytes 2+
[2020-05-14 09:37] LABS: ALT 32 U/L (14-59); AST 22 U/L (15-37); Albumin 3.7 g/dL (3.4-5.0); Alkaline Phosphatase 92 U/L (46-116); Anion Gap 7.8 mmol/L (3-11); BUN 14 mg/dL (7-18); Bilirubin, Total 0.4 mg/dL (0.2-1.0); CO2 28.2 mmol/L (21.0-32.0); CREATININE 0.76 mg/dL (0.55-1.02); Calcium 8.9 mg/dL (8.5-10.1); Chloride 103 mmol/L (98-107); Glucose 95 mg/dL (74-106); Magnesium 1.8 mg/dL (1.8-2.4); Potassium 3.9 mmol/L (3.5-5.1); Sodium 139 mmol/L (136-145); Total Protein 6.7 g/dL (6.4-8.2)
== END 2020-05-22 23:59 | disposition home or self-care (01) ==
LOC: INF 01:26
PROVIDERS: PCP Nurse Practitioner Family; Visit Provider Internal Medicine
DX: C53.1 Malignant neoplasm of exocervix (principal); Z45.2 Encounter for adjustment and management of vascular access device
CPT/HCPCS: 36415; 80053; 83735; 85025

== ENCOUNTER 2020-06-04 01:16 | Outpatient (RCR) | payer MEDICAID, SELFPAY | END 2020-06-22 23:59 | disposition home or self-care (01) | LOC: INF 01:16 | PROVIDERS: PCP Nurse Practitioner Family; Visit Provider Internal Medicine | DX: Z53.9 Procedure and treatment not carried out, unspecified reason (principal) ==

== ENCOUNTER 2020-06-25 01:41 | Outpatient (RCR) | payer MEDICAID, SELFPAY | END 2020-07-22 23:59 | disposition home or self-care (01) | LOC: INF 01:41 | PROVIDERS: PCP Nurse Practitioner Family; Visit Provider Internal Medicine ==

== ENCOUNTER 2020-07-09 00:31 | Outpatient (CLI) | payer MEDICAID, SELFPAY ==
--- NOTE | 2020-07-09 | DI.DEXA_ITS ---
EXAM: XR DEXA BONE DENSITY W/WO KELLIE CLINICAL HISTORY: NEW RT SACRAL INSUFFICIENCY FX,M84.48XA,OSTEOPOROSIS WITH PATHOLOGICAL FX, TECHNIQUE: COMPARISON: No exams were available for comparison FINDINGS: Lateral Spine Image: Unremarkable. No compression deformities identified. Left hip: Total T-Score: -1.1 Total Z-Score: -0.5 T- and Z-scores: Findings consistent with osteopenia and increased fracture risk. Lumbar Spine: Total T-Score: -2.1 Total Z-Score: -1.1 T- and Z-scores: Findings consistent with osteopenia and an increased fracture risk. IMPRESSION: Osteopenia in the lumbar spine and left hip.
== END 2020-07-09 00:51 ==
PROVIDERS: PCP Nurse Practitioner Family; Visit Provider Internal Medicine
DX: M84.48XA Pathological fracture, other site, initial encounter for fracture (principal); M85.89 Other specified disorders of bone density and structure, multiple sites
CPT/HCPCS: 77080

== ENCOUNTER 2020-07-09 01:41 | Outpatient (CLI) | payer MEDICAID, SELFPAY ==
[2020-07-09 16:33] LABS: Abs Immature Grans 0.02 10^3/uL (0.0-0.06); Absolute Basophil Count 0.01 10^3/uL (0.0-0.2); Absolute Lymphocyte Count 0.67 10^3/uL (1.2-3.4); Absolute Monocyte Count 0.58 10^3/uL (0.1-0.8); Absolute Neutrophil Count 3.12 10^3/uL (1.2-6.7); Basophils % 0.2; Eosinophils % 4.3; HCT 34.3 % (36.0-46.0); HGB 10.5 g/dL (11.2-15.7); Immature Grans % 0.4; Lymphocytes % 14.6; MCH 21.3 pg (27.0-33.0); MCHC 30.6 % (32.0-36.0); MCV 69.7 fL (80-95); Monocytes % 12.6; Neutrophils % 67.9; Nucleated RBC 0 %; RBC 4.92 10^6/uL (3.93-5.22); RDW 15.5 % (11.7-14.6); RDW-SD 38.5 fL
[2020-07-09 16:51] LABS: Microcytosis 1+; Platelet Count 226 10^3/uL (130-400)
[2020-07-09 16:59] LABS: ALT 27 U/L (14-59); AST 19 U/L (15-37); Alkaline Phosphatase 93 U/L (46-116); Anion Gap 4.7 mmol/L (3-11); BUN 17 mg/dL (7-18); Bilirubin, Total 0.3 mg/dL (0.2-1.0); CO2 31.3 mmol/L (21.0-32.0); CREATININE 0.95 mg/dL (0.55-1.02); Calcium 9.2 mg/dL (8.5-10.1); Chloride 105 mmol/L (98-107); Glucose 102 mg/dL (74-106); Potassium 3.7 mmol/L (3.5-5.1); Sodium 141 mmol/L (136-145); Total Protein 7.1 g/dL (6.4-8.2)
== END 2020-07-09 02:01 ==
PROVIDERS: PCP Nurse Practitioner Family; Visit Provider Internal Medicine
DX: C53.1 Malignant neoplasm of exocervix (principal)
CPT/HCPCS: 36415; 80053; 83735; 85025

== ENCOUNTER 2020-07-16 14:10 | Outpatient (CLI) | payer MEDICAID, SELFPAY ==
[2020-07-16 21:28] LABS: Vitamin D 25 Total 24.6 ng/ml (30-100)
== END 2020-07-16 14:30 ==
PROVIDERS: PCP Nurse Practitioner Family; Visit Provider Internal Medicine
DX: M84.48XA Pathological fracture, other site, initial encounter for fracture (principal); M80.0AXA Age-related osteoporosis with current pathological fracture, other site, initial encounter for fracture
CPT/HCPCS: 36415; 82306

== ENCOUNTER 2020-11-21 01:45 | Outpatient (CLI) | payer MEDICAID, SELFPAY ==
--- NOTE | 2020-11-21 | DI.CT_ITS ---
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 TECHNIQUE: Imaging Protocol: Axial computed tomography images with coronal and sagittal reformatted images were created and reviewed CONTRAST MATERIAL: Intravenous: Omnipaque 100cc Oral: Yes COMPARISON: CT CT CHEST ABDOMEN PELVI from 06/28/[address] CHEST ABDOMEN PELVI from 06/28/2020(outside institution) FINDINGS: VISUALIZED LUNG BASES: No nodules nor pleural effusions evident. ABDOMEN: There is no ascites. LIVER: There is a well-defined 9 x 8 millimeter hypodensity in the right lobe which is probably a cys t. Higher up in the liver there is another similar but smaller 4 millimeter probable cyst. Another 4 millimeters cyst seen in the left lobe. There is no dilatation of intrahepatic ducts. GALLBLADDER/BILIARY: Tiny density noted in the gallbladder. Possible calculus. There is no gallblad hanna wall edema. CBD is not dilated. PANCREAS: No evidence of pancreatic mass nor dilatation of the pancreatic duct. SPLEEN: Spleen size is slightly prominent. Splenic and portal veins are patent. ADRENALS: There are no significant adrenal masses. KIDNEYS:No cysts evident. No solid renal masses. No calculi nor hydronephrosis.. ABDOMINAL AORTA: Abdominal aorta is not enlarged. LYMPH NODES:There is no retroperitineal nor paraaortic adenopathy. ABDOMINAL WALL/GI: There is a fat containing umbilical hernia. Benign appearance. No bowel loops th erein. No bowel obstruction. There is abundant fecal material noted in the colon. Small bowel loop diameters are upper normal. PELVIS: GI: No evidence of appendicitis.No evidence of sigmoid diverticulitis. LYMPH NODES: There is no intrapelvic nor inguinal adenopathy. REPRODUCTIVE: Uterus is surgically absent. Surgical cough region appears unchanged. No evidence of intrapelvic abscess. There are no abnormal adnexal masses. URINARY BLADDER: No calculi nor obvious masses evident OSSEOUS: Sclerotic density seen on both sides the sacrum, similar to the previous outside study of . Probably related to sacral insufficiency fracture, as previously documented. IMPRESSION: 1. Multiple benign-appearing hypodensities in the liver, the largest measuring 9 x 8 millimeters and probably representing benign cysts. 2. Again noted is evidence of previous hysterectomy. Appearance of the deep pelvis is unchanged from the outside study of 06/28/2020. 3. Sclerotic changes again noted in both sides the sacrum which were also evident on the prior study and deemed to to be related to a sacral insufficiency fracture. Cannot completely exclude an element of blastic disease. Very little change compared to the prior study. 4. Tiny density noted in the gallbladder. Possible polyp versus calculus. Recommend follow-up ultra sound. RADIATION DOSE DELIVERED: 1,315.93mGy.cm Total DLP DATA REPOSITORY: All CT scans at this facility are submitted to the National Radiology Data Registry (NRDR) Dose Index Registry (DIR) with the [employer] (ACR). RADIATION OPTIMIZATION: All CT scans at this facility use at least one of these dose optimization te chniques: automated exposure control; mA and/or kV adjustment per patient size (includes targeted exa ms where dose is matched to clinical indication); or iterative reconstruction.
[2020-11-21] MEDS: Omnipaque 350 MG/ML 50 ML BTL IJ (08:43)
[2020-11-21] MEDS: Breeza Beverage 473 ML BTL PO (08:44)
[2020-11-21] MEDS: Omnipaque 350 MG/ML 100 ML BTL IJ (10:12)
[2020-11-21] MEDS: Normal Saline - Diluent 50 ML VIAL IV (10:13)
== END 2020-11-21 02:05 ==
PROVIDERS: PCP Nurse Practitioner Family; Visit Provider Obstetrics & Gynecology Gynecologic Oncology
DX: C53.1 Malignant neoplasm of exocervix (principal); R93.2 Abnormal findings on diagnostic imaging of liver and biliary tract
CPT/HCPCS: 74177; J3490; Q9967

== ENCOUNTER 2020-11-27 10:14 | Outpatient (REF) | payer MEDICAID, SELFPAY ==
[2020-11-27 16:04] LABS: Folate 11.6 ng/mL (8.6-20.0); Vitamin B12 324 pg/mL (193-986)
[2020-11-29 16:21] LABS: Albumin 66.2 % (55.8-66.1); Total Protein 6.7 g/dL (6.3-8.2)
== END 2020-11-27 10:15 | disposition home or self-care (01) ==
LOC: NCHCN 10:14
PROVIDERS: PCP Nurse Practitioner Family; Visit Provider Family Medicine
DX: G60.9 Hereditary and idiopathic neuropathy, unspecified (principal)
CPT/HCPCS: 82607; 82746; 84165

== ENCOUNTER 2020-12-04 10:58 | Outpatient (REF) | payer MEDICAID, SELFPAY ==
[2020-12-04 13:45] LABS: Iron 50 ug/dL (50-170); Total Iron Binding Capacity 279 ug/dL (250-450); Transferrin Sat 18 % (15-50)
[2020-12-04 13:53] LABS: Ferritin 72 ng/mL (8-252)
== END 2020-12-04 10:59 | disposition home or self-care (01) ==
LOC: NCHCN 10:58
PROVIDERS: PCP Nurse Practitioner Family; Visit Provider Family Medicine
DX: D64.9 Anemia, unspecified (principal)
CPT/HCPCS: 82728; 83540; 83550

== ENCOUNTER 2021-01-08 01:07 | Outpatient (CLI) | payer MEDICAID, SELFPAY ==
--- NOTE | 2021-01-08 | DI.MAMMO_ITS ---
Exam(s) MAMMO SCREENING EXAM: MAMMO SCREENING CLINICAL HISTORY: SCREENING, Z12.39. TECHNIQUE: Bilateral full field digital CC and MLO mammographic images were obtained with 3D tomosyn thesis and utilizing computer aided detection (CAD). COMPARISON: Prior mammograms dating back to 2016, the most recent being 2017. There are no interval mammograms since 2017. FINDINGS: The fibroglandular tissue pattern is again noted be moderately dense, this decreasing the sensitivity of the mammogram for finding hidden underlying lesions. There is a lobulated nodular density in the lateral aspect of the left breast which is unchanged from prior studies and therefore most probably benign. A few benign microcalcifications are again noted. There are no malignant-appearing microcalcificatio n groups in either breast. There is no significant architectural distortion nor skin thickening-retraction. IMPRESSION: Moderately dense fibroglandular tissue. Stable benign findings. No radiographic evidence of maligna ncy. BI-RADS Category 2 - Benign Findings Breast Density - Category C - Heterogeneously dense Breast density Category C or D implies that the patient has dense breast tissue. Dense breast tissue can make it harder to find cancer on a mammogram. Dense breast tissue is also associated with an incr eased risk of breast cancer. This information about the result of the mammogram report was provided to the patient to raise their awareness. Use this report when you speak with the patient about their risks for breast cancer, which includes their family history. At that time, you may recommend additional screening tests (Ultrasoun d or MRI) as these tests may add significant information. A negative radiographic report should not delay biopsy if a dominant or clinically suspicious mass is present. Up to ten percent of cancers are not identified on mammography. A negative report may reinforce clinical impression. Adenosis and dense breasts may obscure an underlying neoplasm. False positive reports average 6 to 10%. Patient will receive a letter notifying them of these results.
== END 2021-01-08 01:27 ==
PROVIDERS: PCP Nurse Practitioner Family; Visit Provider Nurse Practitioner Family
DX: Z12.31 Encounter for screening mammogram for malignant neoplasm of breast (principal)
CPT/HCPCS: 77063; 77067

== ENCOUNTER 2021-07-01 00:56 | Outpatient (CLI) | payer MEDICAID, SELFPAY ==
[2021-07-01] MEDS: Breeza Beverage 473 ML BTL 946 ML PO (08:21)
[2021-07-01] MEDS: Omnipaque 350 MG/ML 50 ML BTL PO (08:22)
[2021-07-01 09:03] LABS: CREATININE 0.8 mg/dL (0.55-1.02)
[2021-07-01] MEDS: Omnipaque 350 MG/ML 100 ML BTL IJ (10:20)
[2021-07-01] MEDS: Normal Saline - Diluent 50 ML VIAL IV (10:21)
[2021-07-01] MEDS: Normal Saline Flush 10 ML SYR IVP (10:22)
--- NOTE | 2021-07-01 10:25 | DI.CT_ITS ---
Exam(s) CT ABDOMEN PELVIS W EXAM: CT ABDOMEN PELVIS W CLINICAL HISTORY: S/P RADIOTHERAPY Z92.3 POST OP CHEMO XRT CERVICAL CANCER, NEW PAIN IN B TECHNIQUE: Imaging Protocol: Axial computed tomography images with coronal and sagittal reformatted images were created and reviewed CONTRAST MATERIAL: Intravenous: Omnipaque 350 Contrast volume:100 mL Oral: Yes COMPARISON: CT CT ABDOMEN PELVIS W from 11/21/2020 FINDINGS: ABDOMEN: Lung Bases: Normal where visualized. Liver: Normal density. The tiny well-circumscribed homogeneously hypodense lesions in the liver are s table and likely reflect cysts. No suspicious enhancing lesions are seen to suggest hepatic metastat ic disease. Portal, Superior Mesenteric, and Splenic Veins: Unremarkable. Gallbladder and Biliary Tract: The 0.4 cm nodule along the wall of the gallbladder is stable. This m ay represent a polyp. Gallbladder ultrasound may be obtained for further evaluation. The gallbladde r is otherwise unremarkable. No biliary ductal dilatation. Pancreas: Normal density, no abnormal calcifications or inflammatory process. Spleen: Normal. Adrenals: No masses seen. Kidneys: Normal size, contour and axis. No radiodense stones or obstructive uropathy. There is a stab le 4 mm cyst in the lower pole of the left kidney. Abdominal Aorta: Abdominal portion non-dilated. Mild atherosclerosis. Bowel: No obstruction or bowel wall thickening. Appendix is unremarkable. Peritoneal Cavity: No ascites, collection or mesenteric inflammatory response. No free air. Lymph Nodes: Within normal limits. Bones: Within normal limits for the patient's age. There has been no change in appearance of the sac rum which may reflect prior insufficiency fractures. No suspicious lytic or sclerotic lesions are se en. Soft Tissues: Small fat containing umbilical hernia PELVIS: Bladder: Symmetric distention, no gross wall thickening. Reproductive Organs: The patient is status post hysterectomy. No pelvic mass is identified. Lymph Nodes: Within normal limits. Bones: Within normal limits for the patient's age. IMPRESSION: 1. No evidence of abdominal or pelvic metastatic disease. 2. Stable appearance of the abdomen and pelvis since 11/21/2020. RADIATION DOSE DELIVERED: 1,245.53mGy.cm Total DLP DATA REPOSITORY: All CT scans at this facility are submitted to the National Radiology Data Registry (NRDR) Dose Index Registry (DIR) with the [employer] (ACR). RADIATION OPTIMIZATION: All CT scans at this facility use at least one of these dose optimization te chniques: automated exposure control; mA and/or kV adjustment per patient size (includes targeted exa ms where dose is matched to clinical indication); or iterative reconstruction.
== END 2021-07-01 01:16 ==
PROVIDERS: PCP Nurse Practitioner Family; Visit Provider Radiology Radiation Oncology
DX: Z92.3 Personal history of irradiation (principal)
CPT/HCPCS: 74177; 82565; J3490; Q9967

== ENCOUNTER 2021-07-04 14:17 | Outpatient (REF) | payer MEDICAID, SELFPAY ==
[2021-07-04 19:35] LABS: HCT 37.7 % (36.0-46.0); HGB 11.3 g/dL (11.2-15.7); MCH 19.8 pg (27.0-33.0); MCV 66.1 fL (80-95); MPV 10.7 fL (8.0-11.0); Platelet Count 204 10^3/uL (130-400); RDW 15.7 % (11.7-14.6); RDW-SD 36.2 fL; WBC 6.08 10^3/uL (4.4-10.8)
[2021-07-04 21:23] LABS: Albumin 3.9 g/dL (3.4-5.0); Alkaline Phosphatase 81 U/L (46-116); BUN 18 mg/dL (7-18); Bilirubin, Total 0.3 mg/dL (0.2-1.0); CREATININE 0.8 mg/dL (0.55-1.02); Chloride 105 mmol/L (98-107); Glucose 127 mg/dL (74-106); Potassium 3.9 mmol/L (3.5-5.1); Sodium 144 mmol/L (136-145); Total Protein 6.8 g/dL (6.4-8.2)
[2021-07-04 21:24] LABS: ALT 27 U/L (14-59); AST 18 U/L (15-37); Anion Gap 9.9 mmol/L (3-11); CO2 29.1 mmol/L (21.0-32.0)
[2021-07-04 21:25] LABS: Creatine Kinase 209 U/L (26-192)
[2021-07-05 02:36] LABS: Folate 11.4 ng/mL (8.6-20.0); Vitamin B12 457 pg/mL (193-986)
[2021-07-07 08:34] LABS: Vitamin D 25 Total 24.9 ng/mL (30-100)
[2021-07-08 19:28] LABS: Iron 43 ug/dL (50-170); Total Iron Binding Capacity 303 ug/dL (250-450); Transferrin Sat 14 % (15-50)
[2021-07-08 19:41] LABS: Ferritin 68 ng/mL (8-252)
== END 2021-07-04 14:18 | disposition home or self-care (01) ==
LOC: NCHCN 14:17
PROVIDERS: PCP Nurse Practitioner Family; Visit Provider Family Medicine
DX: R53.83 Other fatigue (principal); E53.8 Deficiency of other specified B group vitamins
CPT/HCPCS: 80053; 82306; 82550; 85027; 82607; 82728; 82746; 83540; 83550; 84443

== ENCOUNTER 2021-07-23 08:22 | Outpatient (REF) | payer MEDICAID, SELFPAY ==
[2021-07-28 13:19] LABS: IgA 130 mg/dL (85-499); Interpretation (See Note); Tissue Transglutaminase IgA <1.2 U/mL (<4.0)
== END 2021-07-23 08:23 | disposition home or self-care (01) ==
LOC: NCHCN 08:22
PROVIDERS: PCP Nurse Practitioner Family; Visit Provider Family Medicine
DX: D64.9 Anemia, unspecified (principal); E55.9 Vitamin D deficiency, unspecified
CPT/HCPCS: 82784; 83516

== ENCOUNTER 2021-10-01 12:52 | Outpatient (REF) | payer MEDICAID, SELFPAY ==
[2021-10-01 14:43] LABS: HCT 40.1 % (36.0-46.0); HGB 11.9 g/dL (11.2-15.7); MCH 19.5 pg (27.0-33.0); MCHC 29.7 % (32.0-36.0); MPV 10.3 fL (8.0-11.0); Platelet Count 176 10^3/uL (130-400); RBC 6.11 10^6/uL (3.93-5.22); RDW 15.9 % (11.7-14.6); RDW-SD 35.8 fL; WBC 6.02 10^3/uL (4.4-10.8)
[2021-10-01 14:46] LABS: MCV 65.6 fL (80-95)
[2021-10-01 14:53] LABS: Iron 48 ug/dL (50-170); Total Iron Binding Capacity 290 ug/dL (250-450); Transferrin Sat 17 % (15-50)
[2021-10-01 15:24] LABS: Ferritin 64 ng/mL (8-252)
[2021-10-01 15:36] LABS: Creatine Kinase 182 U/L (26-192)
[2021-10-02 00:22] LABS: Vitamin D 25 Total 61.6 ng/mL (30-100)
== END 2021-10-01 12:53 | disposition home or self-care (01) ==
LOC: LBN 12:52
PROVIDERS: PCP Nurse Practitioner Family; Visit Provider Family Medicine
DX: D64.9 Anemia, unspecified (principal); E55.9 Vitamin D deficiency, unspecified; M54.2 Cervicalgia
CPT/HCPCS: 82306; 82550; 85027; 82728; 83540; 83550

== ENCOUNTER 2021-10-10 16:07 | Outpatient (REF) | payer MEDICAID, SELFPAY ==
[2021-10-10 16:01] LABS: Calculated LDL 134 mg/dL (<100); Cholesterol 222 mg/dL (<200); HDL Cholesterol 79 mg/dL (40-60); Triglyceride 45 mg/dL (<150)
[2021-10-10 16:07] LABS: Hemoglobin A1C 6.1 % (<5.7)
[2021-10-13 11:21] LABS: Hepatitis C Ab w Rflx HCV PCR Negative (Negative)
[2021-10-13 11:55] LABS: HIV-1/2 Ag & Ab Screen Negative (Negative)
== END 2021-10-10 16:08 | disposition home or self-care (01) ==
LOC: NCHCN 16:07
PROVIDERS: PCP Nurse Practitioner Family; Visit Provider Family Medicine
DX: Z00.00 Encounter for general adult medical examination without abnormal findings (principal); Z13.220 Encounter for screening for lipoid disorders; Z13.1 Encounter for screening for diabetes mellitus; Z11.4 Encounter for screening for human immunodeficiency virus [HIV]; Z11.59 Encounter for screening for other viral diseases; R53.83 Other fatigue; D64.9 Anemia, unspecified
CPT/HCPCS: 80061; 86803; 87389; 83036

== ENCOUNTER 2021-10-27 03:15 | Outpatient (CLI) | payer MEDICAID, SELFPAY ==
--- NOTE | 2021-10-27 | DI.US_ITS ---
Exam(s) US ABDOMEN LIMITED EXAM: US ABDOMEN LIMITED CLINICAL HISTORY: F/U ABNL CT SHOWING .4 CM NODULE GB WALL,? POLYP,S/P RADIOTHERAPY,Z92.3 TECHNIQUE: Ultrasound abdomen performed using standard protocol. COMPARISON: CT CT CHEST ABDOMEN PELVI from 06/28/[address] ABDOMEN PELVIS W from 11/21/[address] ABDOMEN PELVIS W from 07/01/2021 FINDINGS: LIVER: Normal size and echogenicity. Stable 13 millimeter cyst. GALLBLADDER: 5 millimeter nonshadowing smoothly marginated marginated focus adherent to the gallbladd er wall, nonvascular, consistent with a small polyp. Unchanged from previous CT examinations. No ev idence of cholelithiasis. No evidence of wall thickening. No pericholecystic fluid identified. PYLE'S SIGN: Negative. BILIARY SYSTEM: No intrahepatic or extrahepatic biliary ductal dilation. Right KIDNEY: . No evidence of renal calculi. No evidence of hydronephrosis. No renal mass or cyst id entified. PANCREAS: Normal where visualized. ABDOMINAL AORTA AND IVC: Visualized portions normal caliber. ASCITES: None seen. IMPRESSION: Stable appearance of 5 millimeter gallbladder polyp. Stable small small liver cyst. DATA REPOSITORY:
== END 2021-10-27 03:35 ==
PROVIDERS: PCP Nurse Practitioner Family; Visit Provider Radiology Radiation Oncology
DX: Z92.3 Personal history of irradiation (principal); K82.4 Cholesterolosis of gallbladder; K76.89 Other specified diseases of liver
CPT/HCPCS: 76705

== ENCOUNTER → 2022-02-02 01:40 | Outpatient (CLI) | payer MEDICAID, SELFPAY ==
--- NOTE | 2022-02-02 | DI.MAMMO_ITS ---
Exam(s) MAMMO SCREENING EXAM: MAMMO SCREENING CLINICAL HISTORY: SCREENING, Z12.39 TECHNIQUE: Mammograms were interpreted according to the usual protocol including computer analysis w [employer] CAD system, tomosynthesis and C-view imaging. COMPARISON: 2015 through 2020 FINDINGS: The breasts are composed of heterogeneously dense fibroglandular densities, Breast Density category C . No suspicious masses or suspicious microcalcifications are seen. Stable circumscribed area nodularit y upper-outer quadrant left breast. No skin thickening or abnormal axillary lymph nodes are seen. There has been no significant change from prior exams. IMPRESSION: BI-RADS Cat 2 - Benign Findings Yearly screening mammography is recommended. Breast Density Category C, heterogeneously Dense. The mammogram demonstrates the patient's breast tissue is dense. Dense breast tissue is very common a nd is not abnormal but dense breast tissue can make it harder to find cancer on a mammogram. Also, de nse breast tissue may increase breast cancer risk. This information about the result of the mammogram report was provided to the patient to raise their awareness. Use this report when you speak with the patient about their risks for breast cancer, which includes their family history. At that time, you may recommend additional screening tests (Ultrasound or MRI) as they might be useful based on their r isk. A negative radiographic report should not delay biopsy if a dominant or clinically suspicious mass is present. Up to ten percent of cancers are not identified on mammography. A negative report may reinforce clinical impression. Adenosis and dense breasts may obscure an underlying neoplasm. False positive reports average 6 to 10%.
== END ==
PROVIDERS: PCP Nurse Practitioner Family; Visit Provider Family Medicine
DX: Z12.31 Encounter for screening mammogram for malignant neoplasm of breast (principal)
CPT/HCPCS: 77063; 77067

== ENCOUNTER → 2022-06-16 01:30 | Outpatient (CLI) | payer MEDICAID, SELFPAY ==
--- NOTE | 2022-06-16 10:00 | DI.MRI_ITS ---
Exam(s) MR BRAIN WO/W EXAM: MR BRAIN WO/W CLINICAL HISTORY: VERTIGO, R42; H/O CERVICAL CA, Z85.41; IBS, K58.9; BILAT TINNITUS, H93.13 TECHNIQUE: Multiplanar multisequence MRI of the brain was performed. Both noninfused and contrast i nfused sequences were performed. IV Contrast injected was 16 cc Dotarem. COMPARISON: No exams were available for comparison FINDINGS: CEREBRAL PARENCHYMA: No evidence of intracranial hemorrhage, mass effect nor shift of midline structu re. No extraaxial fluid collections. Ventricles are not enlarged nor shifted. There is no significant focal signal abnormality in the cerebellar hemispheres nor within the neo, m idbrain, and thalami. There is no abnormal prominent signal abnormality in the periventricular white matter. However, ther e is a small 4 millimeter nonspecific focus of signal abnormality in the anterior left white matter f orceps and a smaller 2 millimeters similar finding in the right anterior forceps frontal lobe white m atter. No evidence of demyelinating plaques. There are no ring enhancing lesions in the brain. There is no abnormal meningeal enhancement, focal nor diffuse. Septum cavum pellucidum incidentally noted. IAC'S: On the high-resolution sub millimeters slice sequence there are no masses in the cerebellopont ine angles nor within the internal auditory canals. The 7th and 8th cranial nerves within the canals are demonstrated to be normal bilaterally. On this high-resolution sequence we also note the trigeminal-5th cranial nerves appearing unremarkabl e as they exit the neo heading anteriorly to enter Meckel's caves bilaterally. DWI: No foci of restricted diffusion evident. PITUITARY GLAND: No mass nor parasellar abnormality. No obvious abnormality in the cavernous sinuses. FLOW VOIDS: The expected flow void are noted. No evidence of obvious aneurysm nor obvious vascular ma lformation. PARANASAL SINUSES: The visualized paranasal sinuses appear unremarkable. ORBITS: No obvious abnormal findings. IMPRESSION: 1. No evidence of mass in the cerebellopontine angles and no evidence of intra canalicular acoustic n euroma/schwannoma.. 2. No ring enhancing lesions in the brain and no abnormal meningeal enhancement. 3. Mild nonspecific white matter signal foci seen on FLAIR imaging, not exhibiting evidence of hemor rhage, surrounding edema, enhancement, no restricted diffusion. DATA REPOSITORY:
[2022-06-16] MEDS: Normal Saline Flush 10 ML SYR IVP (10:31)
== END ==
PROVIDERS: PCP Nurse Practitioner Family; Visit Provider Family Medicine
DX: R42 Dizziness and giddiness (principal); K58.9 Irritable bowel syndrome, unspecified; R90.82 White matter disease, unspecified
CPT/HCPCS: 70553

== ENCOUNTER 2022-10-06 00:39 | Outpatient (CLI) | payer MEDICAID, SELFPAY ==
--- NOTE | 2022-10-06 | DI.CT_ITS ---
Exam(s) CT ABDOMEN PELVIS W EXAM: CT ABDOMEN PELVIS W CLINICAL HISTORY: S/P RADIOTHERAPY, NEOPLASM CERVIX, Z92.3, C53.9. TECHNIQUE: Imaging Protocol: Axial computed tomography images with coronal and sagittal reformatted images were created and reviewed CONTRAST MATERIAL: Intravenous: Omnipaque-350 100cc Oral: Yes. Oral contrast was also administered for bowel opacification. COMPARISON: CT CT ABDOMEN PELVIS W from 07/01/2021 FINDINGS: VISUALIZED LUNG BASES: No nodules nor pleural effusions evident. ABDOMEN: There is no ascites. No new mesenteric masses. LIVER: There few small cysts in the liver. The largest of these is in the right hepatic lobe and kina sures approximately 1 cm, unchanged. No new ominous focal hepatic lesions. There is no prominent di latation of intrahepatic ducts. GALLBLADDER/BILIARY: No obvious gallbladder pathology. CBD is not dilated. PANCREAS: No evidence of pancreatic mass nor dilatation of the pancreatic duct. SPLEEN: Spleen size upper normal. No intrasplenic lesions. Splenic and portal veins are patent. ADRENALS: There are no significant adrenal masses. KIDNEYS:Unchanged small 5 millimeters cyst in the inferior pole the left kidney. No solid renal mass es. No calculi. No hydronephrosis.. ABDOMINAL AORTA: Abdominal aorta is not enlarged. LYMPH NODES:There is no retroperitoneal nor paraaortic adenopathy. ABDOMINAL WALL: Fat only containing umbilical hernia, unchanged. GI: There is no evidence of bowel obstruction, free air, nor abscess. PELVIS: GI: No evidence of appendicitis.No evidence of sigmoid diverticulitis. LYMPH NODES: There is no intrapelvic nor inguinal adenopathy. REPRODUCTIVE: Again noted is evidence of prior hysterectomy. Uterus and ovaries are surgically absen t. There are no new abnormal densities nor fluid within the pelvis. URINARY BLADDER: No calculi nor obvious masses evident OSSEOUS: No fractures and no significant osseous lesions. IMPRESSION: 1. Compared to prior CT scan of June 2021 there is again noted evidence of previous hysterectomy. Uterus and ovaries are surgically absent. There are no new pelvic masses, fluid, nor lymphadenopat hy. 2. No bowel obstruction. No new mesenteric masses. 3. Stable small benign-appearing cysts in the liver again noted. RADIATION DOSE DELIVERED: 1,054.04mGy.cm Total DLP DATA REPOSITORY: All CT scans at this facility are submitted to the National Radiology Data Registry (NRDR) Dose Index Registry (DIR) with the [employer] (A[employer]). RADIATION OPTIMIZATION: All CT scans at this facility use at least one of these dose optimization te chniques: automated exposure control; mA and/or kV adjustment per patient size (includes targeted exa ms where dose is matched to clinical indication); or iterative reconstruction.
[2022-10-06] MEDS: Barium Sulfate 2% W/V-Berry Smoothie 450 ML BTL 900 ML PO (08:31)
[2022-10-06 08:59] LABS: CREATININE 0.9 mg/dL (0.55-1.02); Estimated GFR 75.03 (mL/min/1.73m2)
== END 2022-10-06 00:59 ==
LOC: DI 00:39
PROVIDERS: PCP Family Medicine; Visit Provider Radiology Radiation Oncology
DX: C53.8 Malignant neoplasm of overlapping sites of cervix uteri (principal); Z92.3 Personal history of irradiation
CPT/HCPCS: 74177; 82565

== ENCOUNTER 2022-12-30 09:39 | Outpatient (REF) | payer MEDICAID, SELFPAY ==
[2022-12-30 18:59] LABS: HCT 39.7 % (36.0-46.0); MCH 19.6 pg (27.0-33.0); MCHC 30.2 % (32.0-36.0); MCV 65 fL (80-95); Platelet Count 199 10^3/uL (130-400); RBC 6.11 10^6/uL (3.93-5.22); RDW 16.5 % (11.7-14.6); RDW-SD 35.6 fL; WBC 5.65 10^3/uL (4.4-10.8)
[2022-12-30 19:36] LABS: Glucose 99 mg/dL (74-106); TSH (W/Ref FT4) 0.82 uIU/mL (0.36-3.74); Vitamin B12 402 pg/mL (193-986)
== END 2022-12-30 09:40 | disposition home or self-care (01) ==
LOC: NCHCN 09:39
PROVIDERS: PCP Family Medicine; Visit Provider Family Medicine
DX: R53.83 Other fatigue (principal); R73.03 Prediabetes; Z00.00 Encounter for general adult medical examination without abnormal findings; Z13.88 Encounter for screening for disorder due to exposure to contaminants; R26.89 Other abnormalities of gait and mobility
CPT/HCPCS: 82947; 85027; 82607; 83036; 83655; 84443

== ENCOUNTER 2023-01-19 03:58 | Outpatient (CLI) | payer MEDICAID, SELFPAY | END 2023-01-19 03:59 | disposition home or self-care (01) | LOC: LBO 03:58 | PROVIDERS: PCP Family Medicine; Visit Provider Family Medicine | DX: Z13.88 Encounter for screening for disorder due to exposure to contaminants (principal) | CPT/HCPCS: 36415; 83655 ==

== ENCOUNTER 2023-02-03 02:39 | Outpatient (CLI) | payer MEDICAID, SELFPAY ==
--- NOTE | 2023-02-03 | DI.MAMMO_ITS ---
Exam(s) MAMMO SCREENING EXAM: MAMMO SCREENING CLINICAL HISTORY: SCREENING, Z12.39. TECHNIQUE: Bilateral full field digital CC and MLO mammographic images were obtained with 3D tomosyn thesis and utilizing computer aided detection (CAD). COMPARISON: Prior mammograms dating back to 2016 were reviewed. FINDINGS: Fibroglandular tissue pattern is again noted be moderately dense. A lobulated noncalcified nodule in the upper outer quadrant of the left breast is unchanged from all prior mammograms dating back to at least 2016 and therefore benign, most probably cyst or fibroadenom a. There are no new spiculated masses nor malignant appearing microcalcification groups in either breast .. There is no significant architectural distortion nor skin thickening-retraction. IMPRESSION: Stable benign-appearing findings. No radiographic evidence of malignancy. BI-RADS Category 2 - Benign Findings Breast Density - Category C - Heterogeneously dense Breast density Category C or D implies that the patient has dense breast tissue. Dense breast tissue can make it harder to find cancer on a mammogram. Dense breast tissue is also associated with an incr eased risk of breast cancer. This information about the result of the mammogram report was provided to the patient to raise their awareness. Use this report when you speak with the patient about their risks for breast cancer, which includes their family history. At that time, you may recommend additional screening tests (Ultrasoun d or MRI) as these tests may add significant information. A negative radiographic report should not delay biopsy if a dominant or clinically suspicious mass is present. Up to ten percent of cancers are not identified on mammography. A negative report may reinforce clinical impression. Adenosis and dense breasts may obscure an underlying neoplasm. False positive reports average 6 to 10%. Patient will receive a letter notifying them of these results.
== END 2023-02-03 02:59 ==
LOC: DI 02:39
PROVIDERS: PCP Family Medicine; Visit Provider Family Medicine
DX: Z12.31 Encounter for screening mammogram for malignant neoplasm of breast (principal)
CPT/HCPCS: 77063; 77067

== ENCOUNTER 2024-02-28 14:20 | Emergency (ER) | payer MEDICAID, SELFPAY ==
[2024-02-28 14:24] VITALS: BP 147/90; PULSE 68; RESP 14; TEMP 36.6; O2SAT 99
[2024-02-28 15:27] VITALS: BP 132/89; PULSE 70; RESP 16; O2SAT 97
[2024-02-28] MEDS: Simethicone/Sod Bicarb/Cit Ac, 4 gram PACKET 1 PACKET PO (16:24)
--- NOTE | 2024-02-28 21:37 | ED.GENADUL_ITS ---
Discharge Plan Disposition Patient Disposition: Home Condition: Stable Discharge Details Clinical Impression: Throat discomfort Primary Care Provider: Maria E Fry ED Provider: Katia Jeronimo Home Meds and New Rx's Prescriptions: Continued vitamin B complex [B Complex-Vitamin B12] 1 tab PO DAILY sertraline 100 mg tablet 25 mg PO DAILY Discharge Instructions Additional Instructions: popsicles, cold soda smooth foods today return with difficulty swallowing, abdominal pain, fever, or with any new or worseing complaints Referrals: Maria E Fry MD [Primary Care Provider] - Discharge Data Discharge Date/Time-TO BE ENTERED AT DEPARTURE: 02/28/24 16:31 HPI General Date/Time Provider Initiated Documentation: 02/28/24 14:25 . HPI Narrative: 59-year-old female presents with discomfort in her throat. States she ate a piece of chicken and thinks she swallowed a piece of bone. She is unsure as to whether or not there is a bone stuck in her esophagus. She states she is able to swallow it is just uncomfortable she is unable to describe the sensation per patient. She has not had any vomiting or shortness of breath. Pt states the event occurred one hour airline [employer]. Related Data Home Medications Medication Instructions Recorded Confirmed sertraline 100 mg tablet 25 mg PO DAILY 08/04/23 02/28/24 vitamin B complex 1 tab PO DAILY 08/04/23 02/28/24 Allergies Allergy/AdvReac Type Severity Reaction Status Date / Time No Known Allergies Allergy Unverified 02/28/24 14:27 General Stated Complaint: ThroatFB LAURY: 3 Exam Narrative Exam Narrative: 59-year-old female alert and oriented, no acute distress, oropharynx patent, uvula midline, maintaining secretions, no respiratory distress, no stridor Course Vital Signs Vital signs: Vital Signs Temperature 36.6 C 02/28/24 14:24 Pulse 68 02/28/24 14:24 Respiratory Rate 14 02/28/24 14:24 Blood Pressure 147/90 H 02/28/24 14:24 Pulse Oximetry 99 02/28/24 14:24 Temperature 36.6 C 02/28/24 14:24 Pulse 70 02/28/24 15:27 Respiratory Rate 16 02/28/24 15:27 Respiratory Effort Normal 02/28/24 16:30 Respiratory Pattern Normal 02/28/24 16:30 Blood Pressure 132/89 02/28/24 15:27 Pulse Oximetry 97 02/28/24 15:27 Oxygen Delivery Method Room Air 02/28/24 14:24 Oxygen Flow Rate 0 02/28/24 14:24 Pain Level 2 02/28/24 15:27 Medical Decision Making 59-year-old female presents with difficulty swallowing. Able to tolerate effervescent granules and reports symptomatic improvement. Tolerates p.o., no evidence of obvious food bolus. Request discharge home at this time, feeling symptomatically improved, over the threshold to return with new or worsening complaints. Speaking in complete sentences, no stridor, no distress Quality:SDOH Health Related Social Needs: No Data to Display PFSH All Active Problems (Updated 02/28/24 @ 16:27 by NICKY Olson) Throat discomfort (Acute) Bilateral sensorineural hearing loss (Acute) Imbalance (Acute) Colon cancer screening (Acute) Medical History (Updated 02/28/24 @ 16:27 by NICKY Olson) BETY (generalized anxiety disorder) Hx of cervical cancer Insomnia Peripheral neuropathy Neck pain B12 deficiency Vitamin D deficiency Thalassemia Prediabetes IBS (irritable bowel syndrome) Anemia Depression PTSD (post-traumatic stress disorder) Vertigo Surgical History H/O cone biopsy of cervix History of section History of colonoscopy (~11/02/19) Social History Smoking/Tobacco Use Status: Never Smoking risk assessment performed?: Yes Alcohol Intake: current Alcohol Intake frequency: holidays/special occasions only Drug use: Never Substance use type: does not use Do you feel safe at home: Yes Do you feel safe in your relationship?: Yes
== END 2024-02-28 16:31 | disposition home or self-care (01) ==
PROVIDERS: Emergency Provider Physician Assistant; PCP Family Medicine
DX: R09.A2 Foreign body sensation, throat (principal)
CPT/HCPCS: 99283

== ENCOUNTER 2024-03-31 01:22 | Outpatient (CLI) | payer MEDICAID, SELFPAY ==
[2024-03-31 08:21] LABS: Abs Immature Grans 0.05 10^3/uL (0.0-0.06); Absolute Basophil Count 0.04 10^3/uL (0.0-0.2); Absolute Eosinophil Count 0.22 10^3/uL (0.0-0.7); Absolute Lymphocyte Count 1.38 10^3/uL (1.2-3.4); Absolute Monocyte Count 0.53 10^3/uL (0.1-0.8); Absolute Neutrophil Count 3.85 10^3/uL (1.2-6.7); Basophils % 0.7 %; Eosinophils % 3.6 %; HCT 41.1 % (36.0-46.0); HGB 12.3 g/dL (11.2-15.7); Immature Grans % 0.8 %; Lymphocytes % 22.7 %; MCH 19.5 pg (27.0-33.0); MCHC 29.9 % (32.0-36.0); MCV 65 fL (80-95); MPV 10.1 fL (8.0-11.0); Monocytes % 8.7 %; Neutrophils % 63.5 %; Platelet Count 188 10^3/uL (130-400); RDW 15.9 % (11.7-14.6); RDW-SD 35.3 fL; WBC 6.07 10^3/uL (4.4-10.8)
[2024-03-31 08:52] LABS: Diff Comment Diff Reviewed
[2024-03-31 08:54] LABS: Microcytosis 3+
[2024-03-31 09:59] LABS: ALT 27 U/L (14-59); AST 11 U/L (15-37); Albumin 3.7 g/dL (3.4-5.0); Alkaline Phosphatase 73 U/L (46-116); Anion Gap 6.9 mmol/L (3-11); BUN 19 mg/dL (7-18); Bilirubin, Total 0.58 mg/dL (0.2-1.0); CO2 28.1 mmol/L (21.0-32.0); CREATININE 0.8 mg/dL (0.55-1.02); Calcium 9.5 mg/dL (8.5-10.1); Chloride 106 mmol/L (98-107); Estimated GFR 85.35 (mL/min/1.73m2); Glucose 99 mg/dL (74-106); Potassium 4.5 mmol/L (3.5-5.1); Sodium 141 mmol/L (136-145); TSH 1.01 uIU/Ml (0.36-3.74); Total Protein 6.9 g/dL (6.4-8.2); Vitamin B12 773 pg/mL (193-986)
[2024-03-31 10:00] LABS: C-Reactive Protein < 0.50 mg/dL (<or=0.5)
[2024-03-31 10:17] LABS: FREE T4 0.97 ng/dL (0.76-1.46)
== END 2024-03-31 01:23 | disposition home or self-care (01) ==
LOC: LBO 01:22
PROVIDERS: PCP Family Medicine; Visit Provider Nurse Practitioner Family
DX: F32.89 Other specified depressive episodes (principal); F41.8 Other specified anxiety disorders
CPT/HCPCS: 36415; 80053; 82607; 84439; 84443; 85025; 86140

== ENCOUNTER 2024-10-26 08:28 | Outpatient (CLI) | payer MEDICAID, SELFPAY ==
[2024-10-27 11:29] LABS: Measles IgG Antibody Positive (See Note)
== END 2024-10-26 08:29 | disposition home or self-care (01) ==
LOC: LBO 08:28
PROVIDERS: PCP Family Medicine; Visit Provider Family Medicine
DX: Z11.59 Encounter for screening for other viral diseases (principal)
CPT/HCPCS: 36415; 86765

== ENCOUNTER 2024-12-26 08:32 | Outpatient (CLI) | payer MEDICAID, SELFPAY ==
[2024-12-26 08:29] LABS: HCT 41.5 % (36.0-46.0); HGB 12.5 g/dL (11.2-15.7); MCH 19.5 pg (27.0-33.0); MCHC 30.1 % (32.0-36.0); MPV 9.5 fL (8.0-11.0); Platelet Count 205 10^3/uL (130-400); RBC 6.41 10^6/uL (3.93-5.22); RDW 16.6 % (11.7-14.6); RDW-SD 35.2 fL
[2024-12-26 08:49] LABS: ALT 28 U/L (14-59); AST 24 U/L (15-37); Albumin 3.9 g/dL (3.4-5.0); Alkaline Phosphatase 72 U/L (46-116); Anion Gap 6.1 mmol/L (3-11); BUN 22 mg/dL (7-18); Bilirubin, Total 0.5 mg/dL (0.2-1.0); CO2 28.9 mmol/L (21.0-32.0); CREATININE 0.9 mg/dL (0.55-1.02); Calcium 9.6 mg/dL (8.5-10.1); Calculated LDL 117 mg/dL (<100); Chloride 104 mmol/L (98-107); Cholesterol 218 mg/dL (<200); Glucose 101 mg/dL (74-106); HDL Cholesterol 93 mg/dL (>or=50); Potassium 4.2 mmol/L (3.5-5.1); Sodium 139 mmol/L (136-145); Total Protein 7.2 g/dL (6.4-8.2); Triglyceride 41 mg/dL (<150)
[2024-12-26 08:53] LABS: MCV 65 fL (80-95)
[2024-12-26 08:55] LABS: Hemoglobin A1C 5.9 % (<5.7)
== END 2024-12-26 08:33 | disposition home or self-care (01) ==
LOC: LBO 08:33
PROVIDERS: PCP Family Medicine; Visit Provider Family Medicine
DX: D64.9 Anemia, unspecified (principal); R73.03 Prediabetes; Z13.220 Encounter for screening for lipoid disorders; D56.8 Other thalassemias
CPT/HCPCS: 36415; 80053; 80061; 85027; 83036

== ENCOUNTER 2025-01-10 02:02 | Outpatient (CLI) | payer MEDICAID, SELFPAY ==
--- NOTE | 2025-01-10 | DI.MAMMO_ITS ---
Exam(s) MAMMO SCREENING EXAM: MAMMO SCREENING CLINICAL HISTORY: SCREENING, Z12.31 TECHNIQUE: Bilateral full field digital CC and MLO mammographic images were obtained with 3D tomosyn thesis and utilizing computer aided detection (CAD). COMPARISON: Available for comparison. FINDINGS: Masses/Architectural Distortion: No suspicious masses or areas of architectural distortion are presen t. The nodule in the upper outer quadrant of the left breast is stable. Microcalcifications: No suspicious pleomorphic-type are seen. Skin Thickening/Nipple Retraction: None. IMPRESSION: 1. No significant interval change with no specific features of malignancy noted. 2. Unless there is more urgent need, screening mammography is recommended, as per [employer] guidelines. BI-RADS Category 2 - Benign Findings Breast Density - Category C - The breast are heterogeneously dense, which may obscure small masses. Breast density Category C or D implies that the patient has dense breast tissue. Dense breast tissue can make it harder to find cancer on a mammogram. Dense breast tissue is also associated with an incr eased risk of breast cancer. This information about the result of the mammogram report was provided to the patient to raise their awareness. Use this report when you speak with the patient about their risks for breast cancer, which includes their family history. At that time, you may recommend additional screening tests (Ultrasoun d or MRI) as these tests may add significant information. A negative radiographic report should not delay biopsy if a dominant or clinically suspicious mass is present. Up to ten percent of cancers are not identified on mammography. A negative report may reinforce clinical impression. Adenosis and dense breasts may obscure an underlying neoplasm. False positive reports average 6 to 10%. Patient will receive a letter notifying them of these results.
== END 2025-01-10 02:22 ==
LOC: DI 02:02
PROVIDERS: PCP Family Medicine; Visit Provider Family Medicine
DX: Z12.31 Encounter for screening mammogram for malignant neoplasm of breast (principal); R92.333 Mammographic heterogeneous density, bilateral breasts; D24.2 Benign neoplasm of left breast
CPT/HCPCS: 77063; 77067

== ENCOUNTER 2025-01-10 02:02 | Outpatient (CLI) | payer MEDICAID, SELFPAY ==
--- NOTE | 2025-01-10 | DI.RAD_ITS ---
Exam(s) XR KNEE RT 3V AP,LAT,ANY EXAM: XR KNEE RT 3V AP,LAT,ANY CLINICAL HISTORY: M25.561 Pain in RT knee. TECHNIQUE: 2D digital imaging was performed of the right knee. Three views obtained. AP, lateral an d PA tunnel views were obtained. COMPARISON: No exams were available for comparison FINDINGS: BONES: No acute fracture is present. No bony destructive lesion is seen. JOINTS: There is mild narrowing of the lateral femoral tibial joint. There osteophytes seen at the l ateral femoral tibial joint and the patellofemoral joint. There is a small joint effusion. SOFT TISSUE: Normal. IMPRESSION: [id number] degenerative changes of the right knee. Small joint effusion. DATA REPOSITORY: RADIATION DOSE DELIVERED:
== END 2025-01-10 02:22 ==
LOC: DI 02:02
PROVIDERS: PCP Family Medicine; Visit Provider Family Medicine
DX: M17.11 Unilateral primary osteoarthritis, right knee (principal)
CPT/HCPCS: 73562

== ENCOUNTER 2025-03-30 09:50 | Outpatient (CLI) | payer MEDICAID, SELFPAY ==
[2025-03-30 10:07] LABS: Hemoglobin A1C 5.8 % (<5.7)
== END 2025-03-30 09:51 | disposition home or self-care (01) ==
LOC: LBO 09:50
PROVIDERS: PCP Family Medicine; Visit Provider Family Medicine
DX: R73.03 Prediabetes (principal)
CPT/HCPCS: 36415; 83036